=== PATIENT | female | born 1930 | race Caucasian/White ===

== ENCOUNTER 2018-05-03 03:52 | Inpatient (IN) ==
[2018-05-03] MEDS ORDERED: Ipratropium/Albuterol Neb 3 ML IH ONE (04:00)
[2018-05-03] MEDS ORDERED: methylPREDNISolone 125 MG/2 ML VIAL IVP ONE (04:00)
--- NOTE | 2018-05-03 04:03 | Emergency Department Note ---
Disposition Clinical Impression: Hypoxia Dyspnea Qualifiers: Dyspnea type: unspecified Qualified Code(s): R06.00 - Dyspnea, unspecified CHF (congestive heart failure) Qualifiers: Heart failure type: unspecified Heart failure chronicity: unspecified Qualified Code(s): I50.9 - Heart failure, unspecified Pneumonia Qualifiers: Pneumonia type: due to unspecified organism Laterality: right Lung location: middle lobe of lung Qualified Code(s): J18.1 - Lobar pneumonia, unspecified organism Disposition: Admitted As Inpatient Condition: Good Referrals: NONE,PCP [Primary Care Provider] - Forms: ED Satisfaction Letter General Adult HPI - General Chief complaint: ED Shortness of Breath/Dyspnea Stated complaint: sob Time Seen by Provider: 05/03/18 04:03 Source: patient Mode of arrival: ambulatory Limitations: no limitations Nursing Notes Reviewed: Yes Vital Signs Reviewed: Yes - History of Present Illness HPI Narrative: Patient with past history of previous coronary artery disease as well as CHF, thyroid disease, previous schwannoma presents emergency department for shortness of breath. Started yesterday. Patient has had productive brown sputum without fever. Denies chest pain. Denies fever. Has no prior lung pathology. She states that she did get diagnosed with lung cancer but looking through her records this was a schwannoma the did undergo treatment and has left her with left-sided arm weakness which she states has been chronic since her procedure. The patient was found at her home to be hypoxic at 80%. She states that she felt short of breath. She states that she is feeling better now. She was given breathing treatments by EMS. She was requiring 4 L to keep her pulse ox at 94%. In the emergency department she has got diffuse wheezing with rales at the bases. Patient is 84% on 4 L. The patient will receive further breathing treatments as well as steroids and BiPAP. Further workup to delineate pulmonary versus cardiac pathology she has been ordered. She did have what she thought was a viral syndrome earlier in the week where she was having a slight cough and runny nose myalgias and associated weakness. - Related Data Home Medications Medication Instructions Recorded Confirmed Lipitor 80 mg PO DAILY 10/03/16 09/22/17 Potassium 50 meq PO DAILY 10/03/16 03/31/18 Cranberry 650 mg PO DAILY 11/11/16 03/31/18 Daily Multivitamin Capsule 1 tab PO DAILY 11/11/16 03/31/18 Folic Acid 400 mcg PO DAILY 11/11/16 09/22/17 Brinzolamide/Brimonidine Tart 1 drop OP BID 11/29/16 03/31/18 [Simbrinza 1%-0.2% Eye Drops] Latanoprost [Xalatan] 1 drop OP HS 11/29/16 03/31/18 Aspirin [Adult Aspirin] 81 mg PO DAILY 03/31/18 03/31/18 Clopidogrel [Plavix] 75 mg PO DAILY 03/31/18 03/31/18 Furosemide [Lasix] 10 mg PO DAILY 03/31/18 03/31/18 Metoprolol Tartrate [Lopressor] 50 mg PO BID 03/31/18 03/31/18 Pregabalin [Lyrica] 75 mg PO TID 03/31/18 03/31/18 Sacubitril/Valsartan [Entresto 49 1 each PO BID 03/31/18 03/31/18 mg-51 mg Tablet] Allergies Allergy/AdvReac Type Severity Reaction Status Date / Time Estrogens Allergy Anaphylaxis Verified 05/12/17 13:28 levothyroxine sodium Allergy See Verified 03/31/18 15:41 [From Synthroid] Comments ramipril Allergy Anaphylaxis Verified 05/12/17 13:28 shellfish derived Allergy Vomiting Verified 03/31/18 15:39 Sulfa (Sulfonamide Allergy See Verified 03/31/18 15:41 Antibiotics) Comments Review of Systems: CONSTITUTIONAL: Weakness and fatigue without fevers or chills HEENT: Eyes: No visual changes. Ears, Nose, Throat: No hearing loss, difficulty talking or unable to swallow. SKIN: No rash or itching. CARDIOVASCULAR: No chest pain, chest pressure or chest discomfort. No palpitations or edema. RESPIRATORY: Shortness of breath cough and sputum production. GASTROINTESTINAL: No anorexia, nausea, vomiting or diarrhea. No abdominal pain or blood. GENITOURINARY: No burning on urination or hematuria. NEUROLOGICAL: No headache, dizziness, syncope, paralysis, ataxia, numbness or tingling in the extremities. No change in bowel or bladder control. MUSCULOSKELETAL: No muscle pain, back pain, joint pain or stiffness. Past Medical History - Past Medical History Medical history: Reports: arthritis, cardiomyopathy, CHF, coronary artery disease, glaucoma, hyperlipidemia, hypertension, myocardial infarction, thyroid disease, valvular heart disease - Social History Smoking Status: Never smoker Smokeless Tobacco Status: No Alcohol use: Reports: none Drug use: Reports: none Physical Exam General: Mild respiratory distress. Head: Normocephalic Atraumatic Eyes: PERRL, EOMI ENT: Airway patent, no stridor Neck: supple, no meningismus Chest: Lungs clear to auscultation bilateral Cardiac: Regular rate and rhythm, no murmurs, rubs or gallops Abdomen: soft, nontender, nondistended; no guarding, rebound, or tenderness to percussion Musculoskeletal: Calves symmetric, nontender, no palpable cord Skin: No rash, normal skin tone Neuro: Alert and Oriented to person, place, and time; No CN 2-12 symmetric and intact; left arm weaknesschronic, no other deficits. Course - Reevaluation(s) Reevaluation #1: Patient was given one nitroglycerin with blood pressure going to 123 systolic. Patient was placed on BiPAP and her oxygen is 98% on 50% FiO2. Patient does have an old EKG with her in her personal belongings. His from 2016. It shows similar pattern to today of mild elevations with left bundle branch block to the anterior leads as well as depressions throughout the lateral leads. No significant changes. The patient's chest x-ray shows concern first interstitial pulmonary edema versus multifocal infiltrates. The patient does have a significantly elevated BNP at 2000. No prior BNP for comparison. She has had productive sputum with what she describes as brown sputum. The patient does not have any significant pulmonary history she did get initial breathing treatments and steroids for was likely cardiac asthma. The patient's chest x-ray was visualized that she does have concern for a right middle lobe pneumonia as she has loss of the right heart border. Patient has been given a dose of ceftriaxone and azithromycin in the emergency department with blood cultures obtained. - Consultations Consultation #1: Discussed with hospitalist. Patient except for admission. Vital Signs Temperature 98.5 F 05/03/18 04:01 Pulse Rate 86 05/03/18 04:01 Respiratory Rate 24 05/03/18 04:01 Blood Pressure 172/84 05/03/18 04:01 O2 Sat by Pulse Oximetry 91 05/03/18 04:01 Temperature 98.5 F 05/03/18 04:01 Pulse Rate 86 05/03/18 04:01 Respiratory Rate 24 05/03/18 04:01 Blood Pressure 172/84 05/03/18 04:01 O2 Sat by Pulse Oximetry 88 05/03/18 04:05 Oxygen Delivery Oxygen Delivery Room Air,Oximizer Medical Decision Making - Medical Records Medical records reviewed: Yes I reviewed the patient's medical records. - Lab Data Lab results reviewed: Yes I reviewed the patient's lab results. Result diagrams: 05/03/18 04:09 05/03/18 04:09 Lab Results 05/03/18 05/03/18 05/03/18 Range/Units 04:09 04:09 04:09 WBC 8.6 (4.3-11.1) K/mcL RBC 4.85 (3.82-4.97) M/mcL Hgb 13.3 (11.5-15.4) g/dL Hct 42.3 (35.3-44.9) % MCV 87.2 (83.0-100.0) fL MCH 27.4 L (28.0-33.3) pg MCHC 31.4 L (31.6-35.5) g/dL RDW 14.2 (11.5-14.5) % Plt Count 227 (140-400) K/mcL MPV 10.9 (9.4-12.4) fL Immature Gran % 0.2 (0-4) % Seg Neutrophils % 60.9 % Lymphocytes % 25.4 % Monocytes % 7.2 % Eosinophils % 5.6 % Basophils % 0.7 % Neutrophils # 5.2 (1.6-8.9) K/mcL Lymphocytes # 2.2 (0.6-4.6) K/mcL Monocytes # 0.6 (0.0-1.3) K/mcL Eosinophils # 0.5 (0.0-0.6) K/mcL Basophils # 0.1 (0.0-0.2) K/mcL PT 11.0 (9.4-12.1) Seconds INR 1.0 Sodium 142 (136-145) mEq/L Potassium 3.1 L (3.5-5.1) mEq/L Chloride 106 (98-107) mEq/L Carbon Dioxide 24 (23-29) mEq/L BUN 16 (8-23) mg/dL Creatinine 0.69 (0.60-1.20) mg/dL Est GFR ( Amer) > 60 (> 60) Est GFR (Non-Af Amer) > 60 (> 60) BUN/Creatinine Ratio 23 (6-26) Glucose 195 H (70-105) mg/dL Calculated Osmolality 301 H (280-300) Lactic Acid (0.5-2.2) mmol/L Calcium 8.9 (8.6-10.3) mg/dL Troponin I 0.03 (< 0.04) ng/mL B-Natriuretic Peptide (Less than 100) pg/mL 05/03/18 05/03/18 Range/Units 04:09 04:09 WBC (4.3-11.1) K/mcL RBC (3.82-4.97) M/mcL Hgb (11.5-15.4) g/dL Hct (35.3-44.9) % MCV (83.0-100.0) fL MCH (28.0-33.3) pg MCHC (31.6-35.5) g/dL RDW (11.5-14.5) % Plt Count (140-400) K/mcL MPV (9.4-12.4) fL Immature Gran % (0-4) % Seg Neutrophils % % Lymphocytes % % Monocytes % % Eosinophils % % Basophils % % Neutrophils # (1.6-8.9) K/mcL Lymphocytes # (0.6-4.6) K/mcL Monocytes # (0.0-1.3) K/mcL Eosinophils # (0.0-0.6) K/mcL Basophils # (0.0-0.2) K/mcL PT (9.4-12.1) Seconds INR Sodium (136-145) mEq/L Potassium (3.5-5.1) mEq/L Chloride (98-107) mEq/L Carbon Dioxide (23-29) mEq/L BUN (8-23) mg/dL Creatinine (0.60-1.20) mg/dL Est GFR ( Amer) (> 60) Est GFR (Non-Af Amer) (> 60) BUN/Creatinine Ratio (6-26) Glucose (70-105) mg/dL Calculated Osmolality (280-300) Lactic Acid 2.6 H (0.5-2.2) mmol/L Calcium (8.6-10.3) mg/dL Troponin I (< 0.04) ng/mL B-Natriuretic Peptide 2498 H (Less than 100) pg/mL - Radiology Data Radiology results reviewed: Yes I reviewed the patient's radiology results. - EKG Data EKG #1 EKG attestation: Yes I reviewed and interpreted this EKG. EKG results narrative: EKG shows sinus rhythm with heart rate of 82. ND interval 188. QRS 156. QTC 524. Patient has sinus sinus was not rhythm with a wide QRS and elevations throughout the anterior leads with associated lateral lead T-wave depression. Patient is not having any active chest pain and there is no prior EKG for comparison.
[2018-05-03] MEDS ORDERED: Nitroglycerin 0.4 MG TAB.SUBL SL PRN (04:13)
[2018-05-03] MEDS ORDERED: Nitroglycerin 0.4 MG TAB.SUBL SL ONE (04:18)
[2018-05-03 04:31] LABS: Basophils # 0.1 K/mcL (0.0-0.2); Basophils % 0.7 %; Eosinophils # 0.5 K/mcL (0.0-0.6); Eosinophils % 5.6 %; Hematocrit 42.3 % (35.3-44.9); Hemoglobin 13.3 g/dL (11.5-15.4); Immature Granulocytes % 0.2 % (0-4); Lymphocytes # 2.2 K/mcL (0.6-4.6); Lymphocytes % 25.4 %; Mean Corpuscular HGB Conc 31.4 g/dL (31.6-35.5); Mean Corpuscular Hemoglobin 27.4 pg (28.0-33.3); Mean Corpuscular Volume 87.2 fL (83.0-100.0); Mean Platelet Volume 10.9 fL (9.4-12.4); Monocytes # 0.6 K/mcL (0.0-1.3); Monocytes % 7.2 %; Neutrophils # 5.2 K/mcL (1.6-8.9); Platelet Count 227 K/mcL (140-400); Red Blood Count 4.85 M/mcL (3.82-4.97); Red Cell Distribution Width 14.2 % (11.5-14.5); Segmented Neutrophils % 60.9 %
[2018-05-03 04:53] LABS: BUN/Creatinine Ratio 23 (6-26); Blood Urea Nitrogen 16 mg/dL (8-23); Calcium 8.9 mg/dL (8.6-10.3); Carbon Dioxide 24 mEq/L (23-29); Chloride 106 mEq/L (98-107); Glucose 195 mg/dL (70-105); Osmolality,Calculated 301 (280-300); Potassium 3.1 mEq/L (3.5-5.1); Sodium 142 mEq/L (136-145); eGFR For Non-African Americans > 60 (> 60)
[2018-05-03 04:54] LABS: Troponin I 0.03 ng/mL (< 0.04)
[2018-05-03] MEDS ORDERED: Furosemide 40 MG/4 ML VIAL IVP ONE (05:03)
[2018-05-03] MEDS ORDERED: cefTRIAXone 1,000 MG in Water for inj. (sterile) 20 ML 10 ML IVP STA (05:03)
[2018-05-03] MEDS ORDERED: Azithromycin 500 MG in D5% in Water 250 ML IVPB STA (05:03)
--- NOTE | 2018-05-03 09:47 | Internal Med History&Physical ---
Date of Encounter: 05/03/18 Time of Encounter: 09:47 Internal Medicine - H&P: HPI Chief complaint: SOB History of present illness: Ms. Fernandes is a 88 year old female Patient with coronary artery disease as well as CHF, thyroid disease, previous schwannoma presents emergency department for shortness of breath associated with productive cough. She denies chest pain. Denies fever. The patient was found at her home to be hypoxic at 80% and her She was requiring 4 L to keep her pulse ox at 94%. she was treated with breathing treatments as well as ECG revealed mild elevations with left bundle branch block to the anterior leads as well as depressions throughout the lateral unchanged form prior exam. chest x-ray shows concern first interstitial pulmonary edema versus multifocal infiltrates due to right middle lobe pneumonia. She was admitted for further evaluation. Past Med Surg Social Fam HX - Past Medical History Medical history: arthritis, cardiomyopathy, CHF, coronary artery disease, glaucoma, hyperlipidemia, hypertension, myocardial infarction, thyroid disease, valvular heart disease Additional medical history: lung cancer - Past Surgical History Surgical History: appendectomy, , hysterectomy - Social History Smoking Status: Never smoker Smokeless Tobacco Status: No Alcohol use: none Drug use: none - Family History Mother Living Status: Hx Family Cardiac Disorders: Yes Hx Family Respiratory Disorders: No Hx Family Cancer: Yes Hx Family GI Disorders: No Hx Family Endocrine Disorder: No Hx Family Neuromuscular Disorders: No Hx Family Neurologic Disorders: No Hx Family HEENT Disorders: No Hx Family Autoimmune Disorders: No Internal Medicine - H&P: Meds Potassium 80 meq PO DAILY 10/03/16 [History] Cranberry 650 mg PO DAILY 11/11/16 [History] Daily Multivitamin Capsule 1 tab PO DAILY 11/11/16 [History] Folic Acid 400 mcg PO DAILY 11/11/16 [History] RX: Brinzolamide/Brimonidine Tart [Simbrinza 1%-0.2% Eye Drops] 1 drop OP BID 11/29/16 [History] RX: Latanoprost [Xalatan] 1 drop BOTH EYES HS 11/29/16 [History] RX: Aspirin [Adult Aspirin] 81 mg PO DAILY 03/31/18 [History] RX: Clopidogrel [Plavix] 75 mg PO DAILY 03/31/18 [History] RX: Metoprolol Tartrate [Lopressor] 50 mg PO BID 03/31/18 [History] RX: Pregabalin [Lyrica] 75 mg PO TID 03/31/18 [History] RX: Atorvastatin [Lipitor] 80 mg PO HS 05/04/18 [History] RX: Sacubitril/Valsartan [Entresto 97 mg-103 mg Tablet] 1 each PO BID 05/04/18 [History] Apixaban [Eliquis] 2.5 mg PO BID #60 tablet 05/05/18 [Rx] RX: Atorvastatin [Lipitor] 80 mg PO HS 30 Days #30 tablet 05/06/18 [Rx] RX: Furosemide [Lasix] 40 mg PO DAILY 30 Days #30 tablet 05/06/18 [Rx] Allergy/AdvReac Type Severity Reaction Status Date / Time ramipril Allergy Unknown See Verified 05/04/18 13:06 Comments Sulfa (Sulfonamide Allergy Unknown See Verified 05/04/18 13:06 Antibiotics) Comments shellfish derived Allergy Vomiting Verified 03/31/18 15:39 Estrogens AdvReac Mild See Verified 05/04/18 13:06 Comments levothyroxine sodium AdvReac Unknown See Verified 05/04/18 13:06 [From Synthroid] Comments All Systems PM: A 10-system review of systems was performed and is negative for pertinent findings except as documented above in the HPI. - Constitutional Constitutional: no chills, no fever(s), no night sweats - Cardiovascular Cardiovascular ROS IM: dyspnea, no chest pain, no diaphoresis, no lightheadedness, no palpitations, no syncope - Respiratory Respiratory: cough, dyspnea, excessive phlegm production - Gastrointestinal Gastrointestinal: no abdominal pain, no diarrhea, no hematemesis, no hematochezia, no melena, no nausea, no vomiting - Neurological Neurological ROS: no confusion, no convulsions, no focal weakness, no numbness, no tingling, no tremor(s) - Constitutional Vitals: Temp Pulse Resp BP Pulse Ox 98.5 F 77 16 138/95 92 05/03/18 06:55 05/03/18 06:55 05/03/18 06:55 05/03/18 06:55 05/03/18 06:55 General appearance: Present: A&O X 3 Exam: Physical Exam General: Mild respiratory distress. Head: Normocephalic Atraumatic Eyes: PERRL, EOMI ENT: Airway patent, no stridor Neck: supple, no meningismus Chest: Lungs clear to auscultation bilateral Cardiac: Regular rate and rhythm, no murmurs, rubs or gallops Abdomen: soft, nontender, nondistended; no guarding, rebound, or tenderness to percussion Musculoskeletal: Calves symmetric, nontender, no palpable cord Skin: No rash, normal skin tone Neuro: Alert and Oriented to person, place, and time; No CN 2-12 symmetric and intact; left arm weaknesschronic, no other deficits. - Head Head exam: Present: atraumatic, normocephalic - Neck Neck exam general surgery: Present: supple, trachea midline. Absent: lymphadenopathy - Respiratory Respiratory exam: Present: CTAB. Absent: accessory muscle use, rales, rhonchi, wheezes - Cardiovascular Cardiovascular exam: Present: RRR, +S1, +S2. Absent: diastolic murmur, gallop, rubs, systolic murmur - GI/Abdominal GI/Abdominal exam: Present: normal bowel sounds, soft, no peritoneal signs. Absent: distended, tenderness - Extremities Exam Extremities exam: Present: warm, radial pulses palpable and symmetrical. Absent: calf tenderness, cyanotic, pedal edema Internal Med - H&P Results - Labs CBC & Chem 7: 05/06/18 10:14 05/07/18 09:05 Labs: Short CBC 05/03/18 Range/Units 04:09 WBC 8.6 (4.3-11.1) K/mcL Hgb 13.3 (11.5-15.4) g/dL Hct 42.3 (35.3-44.9) % Plt Count 227 (140-400) K/mcL Neutrophils # 5.2 (1.6-8.9) K/mcL BMP 05/03/18 04:09 Sodium 142 Potassium 3.1 L Chloride 106 Carbon Dioxide 24 BUN 16 Creatinine 0.69 Glucose 195 H Calcium 8.9 Cardiac Enzymes 05/03/18 Range/Units 04:09 Troponin I 0.03 (< 0.04) ng/mL - Impressions ITS Impressions Chest X-Ray 05/03/18 04:00 IMPRESSION: Moderate interstitial opacities throughout both lungs may represent atypical pneumonia or moderate interstitial pulmonary edema. D/ / Hipolito Gallo MD / Hipolito Gallo MD Interpreting Provider: Hipolito Gallo MD - Assessment and plan (1) Shortness of breath Status: Acute Assessment and plan: - SOB due to DD Pneumonia Vs CHF vs COPD exacerbation - Blood Cx - Antibiotics - CBCD, CMP in AM - Continue home dose of lasix. - Tylenol 650 mg PO q 4-6 hr PRN pain or fever - Heparin 5000 U SQ BID (2) Pneumonia Status: Acute Assessment and plan: As above Qualifiers: Pneumonia type: due to unspecified organism Laterality: right Lung location: middle lobe of lung Qualified Code(s): J18.1 - Lobar pneumonia, unspecified organism (3) Hypertension Status: Chronic Assessment and plan: Lopressor Qualifiers: Hypertension type: essential hypertension Qualified Code(s): I10 - Essential (primary) hypertension (4) Schwannoma Status: Chronic Assessment and plan: Stable (5) History of radiation therapy Status: Chronic Assessment and plan: Due to lung CA (6) Hyperlipidemia Status: Acute Assessment and plan: We will continue home statin and obtain fasting lipid profile in a.m. Qualifiers: Qualified Code(s): E78.5 - Hyperlipidemia, unspecified (7) Chronic hypokalemia Status: Acute Assessment and plan: We will continue home potassium supplementation and continue to monitor potassium level - Time Spent With Patient Total time spent is greater than 50% in coordination of care (as documented) at patient's floor/unit and/or counseling patient:
[2018-05-03] MEDS ORDERED: Naloxone 0.4 MG/ML INJ IVP PRN (10:40)
[2018-05-03] MEDS ORDERED: SACUBITRIL/VALSARTAN 49/51 MG TABLET PO SCH (10:45)
[2018-05-03] MEDS ORDERED: Folic Acid 1 MG TABLET PO SCH (10:45)
[2018-05-03] MEDS ORDERED: Multivit/Ca/Min/Fe/FA 1 TAB TABLET PO SCH (10:45)
[2018-05-03] MEDS ORDERED: CRANBERRY 650 MG PO SCH (10:45)
[2018-05-03] MEDS ORDERED: Aspirin Enteric Coated 81 MG Tablet PO SCH (10:45)
[2018-05-03] MEDS: Pregabalin 75 MG CAPSULE PO SCH ×3 (15:24→22:07)
[2018-05-03] MEDS: Folic Acid 1 MG TABLET PO SCH (15:27)
[2018-05-03] MEDS: SACUBITRIL/VALSARTAN 49/51 MG TABLET PO SCH ×2 (15:28→22:07)
[2018-05-03] MEDS: Aspirin Enteric Coated 81 MG Tablet PO SCH (15:30)
[2018-05-03] MEDS: Multivit/Ca/Min/Fe/FA 1 TAB TABLET PO SCH (15:31)
[2018-05-03] MEDS: Brinzolamide/Brimonidine Tart [Simbrinza 1%-0.2% Eye OP SCH ×2 (15:35→22:08)
[2018-05-03] MEDS: Latanoprost 2.5 ML BOTTLE BOTH EYES SCH (22:08)
[2018-05-03] MEDS: Ipratropium/Albuterol Neb 3 ML IH SCH (23:59)
[2018-05-04] MEDS: MethylPREDNISolone 40 MG/ML VIAL IVP SCH ×2 (00:20→06:16)
[2018-05-04] MEDS: Ipratropium/Albuterol Neb 3 ML IH SCH ×4 (03:36→23:36)
[2018-05-04 05:40] LABS: Basophils % 0.1 %; Immature Granulocytes % 1.3 % (0-4); Lymphocytes # 0.7 K/mcL (0.6-4.6); Lymphocytes % 7.8 %; Mean Corpuscular HGB Conc 32.4 g/dL (31.6-35.5); Mean Corpuscular Hemoglobin 27.7 pg (28.0-33.3); Mean Corpuscular Volume 85.6 fL (83.0-100.0); Monocytes # 0.2 K/mcL (0.0-1.3); Monocytes % 1.9 %; Neutrophils # 8.2 K/mcL (1.6-8.9); Platelet Count 198 K/mcL (140-400); Red Blood Count 3.97 M/mcL (3.82-4.97); Red Cell Distribution Width 14.5 % (11.5-14.5); Segmented Neutrophils % 88.9 %
[2018-05-04 05:59] LABS: Alanine Aminotransferase 10 Units/L (7-52); Albumin 3.7 g/dL (3.5-5.7); Albumin/Globulin Ratio 1.5 (1.1-2.2); Alkaline Phosphatase 99 Units/L (34-104); Aspartate Amino Transferase 15 Units/L (13-39); BUN/Creatinine Ratio 32 (6-26); Bilirubin,Total 0.6 mg/dL (0.3-1.0); Blood Urea Nitrogen 22 mg/dL (8-23); Calcium 8.8 mg/dL (8.6-10.3); Carbon Dioxide 28 mEq/L (23-29); Chloride 106 mEq/L (98-107); Chol/HDL Ratio 2.6 (0-4.9); Cholesterol 140 mg/dL (< 200); Globulin 2.5 g/dL (2.4-3.5); Glucose 155 mg/dL (70-105); HDL Cholesterol 53 mg/dL (40-59); LDL Cholesterol,Calculated 77 mg/dL (0-99); Magnesium 1.9 mg/dL (1.6-2.6); Osmolality,Calculated 304 (280-300); Phosphorous 3.5 mg/dL (2.7-4.5); Potassium 3.5 mEq/L (3.5-5.1); Sodium 144 mEq/L (136-145); Total Protein 6.2 g/dL (6.4-8.9); Triglycerides 50 mg/dL (< 150); eGFR For Non-African Americans > 60 (> 60)
[2018-05-04] MEDS ORDERED: Azithromycin 500 MG in D5% in Water 250 ML IVPB SCH (06:00)
[2018-05-04] MEDS ORDERED: cefTRIAXone 1,000 MG in Water for inj. (sterile) 20 ML 10 ML IVP SCH (09:00)
[2018-05-04] MEDS: Aspirin Enteric Coated 81 MG Tablet PO SCH (09:01)
[2018-05-04] MEDS: Pregabalin 75 MG CAPSULE PO SCH ×4 (09:01→21:33)
[2018-05-04] MEDS: Folic Acid 1 MG TABLET PO SCH (09:01)
[2018-05-04] MEDS: SACUBITRIL/VALSARTAN 49/51 MG TABLET PO SCH (09:01)
[2018-05-04] MEDS: Multivit/Ca/Min/Fe/FA 1 TAB TABLET PO SCH (09:01)
[2018-05-04] MEDS: Brinzolamide/Brimonidine Tart [Simbrinza 1%-0.2% Eye OP SCH ×2 (09:02→21:34)
--- NOTE | 2018-05-04 13:56 | Internal Med Progress Note ---
Hospitalist Progress Note - Encounter Date of Encounter: 05/04/18 Time of Encounter: 13:56 - Subjective Interval History: Pt states she is feeling better. Decreased cough and rare sputum. She denies CP and SOB improved. She denies being on home oxygen but does use inhalers. She is also not on BiPAP or CPAP at home. cousin at bedside states she is s/p PCI with stents in October and shortly after she developed CHF and was treated for it. She is on home Lasix. - Exam Vitals: Temp Pulse Resp BP Pulse Ox 97.6 F 72 16 131/89 97 05/04/18 12:17 05/04/18 12:17 05/04/18 12:17 05/04/18 12:17 05/04/18 12:17 Exam: Physical Exam General: Mild respiratory distress. Head: Normocephalic Atraumatic Eyes: PERRL, EOMI ENT: Airway patent, no stridor Neck: supple, no meningismus Chest: Lungs clear to auscultation bilateral Cardiac: Regular rate and rhythm, no murmurs, rubs or gallops Abdomen: soft, nontender, nondistended; no guarding, rebound, or tenderness to percussion Musculoskeletal: Calves symmetric, nontender, no palpable cord Skin: No rash, normal skin tone Neuro: Alert and Oriented to person, place, and time; No CN 2-12 symmetric and intact; left arm weaknesschronic, no other deficits. - Assessment and Plan (1) Shortness of breath Current Visit: Yes Status: Acute Assessment and Plan: - SOB due to interstitial pulmonary edema. Doubt PNA. Pt is afebrile and WBC 9.3 and WNL. Oxygen sat on admission 80% on room air. Not on home oxygen. Will check ambulatory pulse ox. - Blood Cx NGTD - Zithromax and Rocpehin but will DC as there is no evidence of PNA at this time. - Will check respiratory panel. Will check Echo as well. - CBC and CMP reviewed - Continue home dose of Lasix. - Tylenol 650 mg PO q 4-6 hr PRN pain or fever - Heparin 5000 U SQ BID (2) Hypertension Current Visit: No Status: Chronic Assessment and Plan: Lopressor (3) Schwannoma Current Visit: No Status: Chronic Assessment and Plan: Pt has lung CA schwannoma. (4) History of radiation therapy Current Visit: No Status: Chronic Assessment and Plan: Due to lung CA (5) Pneumonia Current Visit: Yes Status: Acute Assessment and Plan: Possible PNA but doubt. More likely pulmonary edema. Will check resp panel and sputum culture. (6) Coronary artery disease Current Visit: Yes Status: Acute Assessment and Plan: On ASA and Atorvastatin (7) Hyperlipidemia Current Visit: Yes Status: Acute Assessment and Plan: Atorvastatin (8) Chronic hypokalemia Current Visit: Yes Status: Acute Assessment and Plan: K corrected. K 3.5 DVT Prophylaxis: Heparin - Summary of Assessment and Plan Summary of Assessment and Plan: Ms. Fernandes is a 88 year old female Patient with coronary artery disease as well as CHF, thyroid disease, previous schwannoma presents emergency department for shortness of breath associated with productive cough. She denies chest pain. Denies fever. The patient was found at her home to be hypoxic at 80% and her She was requiring 4 L to keep her pulse ox at 94%. she was treated with breathing treatments as well as ECG revealed mild elevations with left bundle branch block to the anterior leads as well as depressions throughout the lateral unchanged form prior exam. chest x-ray shows concern first interstitial pulmonary edema versus multifocal infiltrates due to right middle lobe pneumonia. She was admitted for further evaluation. - Time Spent with Patient Total time spent is greater than 50% in coordination of care (as documented) at patient's floor/unit and/or counseling patient: Plan of Care Discussed with: patient Internal Medicine: Result - Labs CBC & Chem 7: 05/04/18 05:03 05/04/18 05:03 Labs: Short CBC 05/04/18 Range/Units 05:03 WBC 9.3 (4.3-11.1) K/mcL Hgb 11.0 L D (11.5-15.4) g/dL Hct 34.0 L (35.3-44.9) % Plt Count 198 (140-400) K/mcL Neutrophils # 8.2 (1.6-8.9) K/mcL BMP 05/04/18 05:03 Sodium 144 Potassium 3.5 Chloride 106 Carbon Dioxide 28 BUN 22 Creatinine 0.68 Glucose 155 H Calcium 8.8 Cardiac Enzymes 05/03/18 05/03/18 Range/Units 16:46 23:15 Troponin I 0.03 0.04 H* (< 0.04) ng/mL Liver Function 05/04/18 Range/Units 05:03 Total Bilirubin 0.6 (0.3-1.0) mg/dL AST 15 (13-39) Units/L ALT 10 (7-52) Units/L Alkaline Phosphatase 99 (34-104) Units/L Albumin 3.7 (3.5-5.7) g/dL - ABG Interpretation ABG results: PT/INR, D-dimer PT 11.0 Seconds (9.4-12.1) 05/03/18 04:09 - Impressions Impressions Chest X-Ray 05/03/18 04:00 IMPRESSION: Moderate interstitial opacities throughout both lungs may represent atypical pneumonia or moderate interstitial pulmonary edema. D/ / 05/03/2018 11:29:42 Hipolito Gallo MD / shawanda Interpreting Provider: Hipolito Gallo MD Consult Discharge Plan - Plan Referrals: NONE,PCP [Primary Care Provider] - (2) Hypertension Qualifiers: Hypertension type: essential hypertension Qualified Code(s): I10 - Essential (primary) hypertension (5) Pneumonia Qualifiers: Pneumonia type: due to unspecified organism Laterality: right Lung location: middle lobe of lung Qualified Code(s): J18.1 - Lobar pneumonia, unspecified organism
[2018-05-04] MEDS: *HR* Heparin 5,000 UNIT/ML VIAL SQ SCH (17:35)
[2018-05-04] MEDS ORDERED: SACUBITRIL/VALSARTAN 97/103 MG TABLET PO SCH (21:00)
[2018-05-04] MEDS: Latanoprost 2.5 ML BOTTLE BOTH EYES SCH (21:34)
[2018-05-05 01:57] LABS: Adenovirus Not Detected (Not Detect); Bordetella Pertussis Not Detected (Not Detect); Chlamydophila pneumoniae Not Detected (Not Detect); Coronavirus 229E Not Detected (Not Detect); Coronavirus HKU1 Not Detected (Not Detect); Coronavirus NL63 Not Detected (Not Detect); Coronavirus OC43 Not Detected (Not Detect); Human Metapneumovirus Not Detected (Not Detect); Human Rhinovirus/Enterovirus DETECTED (Not Detect); Influenza A Subtype 2009 H1 Not Detected (Not Detect); Influenza A Untypeable Not Detected (Not Detect); Influenza B Not Detected (Not Detect); Mycoplasma pneumoniae Not Detected (Not Detect); Parainfluenza Virus 1 Not Detected (Not Detect); Parainfluenza Virus 2 Not Detected (Not Detect); Parainfluenza Virus 3 Not Detected (Not Detect); Parainfluenza Virus 4 Not Detected (Not Detect); Respiratory Syncytial Virus Not Detected (Not Detect)
[2018-05-05] MEDS: Ipratropium/Albuterol Neb 3 ML IH SCH ×3 (04:07→16:26)
[2018-05-05] MEDS ORDERED: *HR* Metoprolol 5 MG/5 ML VIAL IVP ONE ×3 (05:13→05:38)
[2018-05-05] MEDS: *HR* Heparin 5,000 UNIT/ML VIAL SQ SCH (05:55)
[2018-05-05] MEDS ORDERED: *HR* Heparin 5,000 UNIT/ML VIAL IVP ONE (06:53)
[2018-05-05] MEDS ORDERED: *HR* Heparin 5,000 UNIT/ML VIAL IVP PRN ×2 (06:53)
[2018-05-05] MEDS ORDERED: Heparin 25,000 UNIT/500 ML D5W 25,000 UNIT/500 ML BAG IVC SCH (07:00)
--- NOTE | 2018-05-05 07:01 | Event Note ---
Date of Encounter: 05/05/18 Time of Encounter: 05:00 Called to patient's room for atrial fibrillation with rate of 140s to 160s. EKG performed confirmed atrial fibrillation with left fundal branch block, which patient has had on her previous EKG. Patient denies chest pain. Patient's blood pressure 140s over 90s initially. We established IV access, and gave patient 5 mg of Lopressor. Patient's rate initially dropped to 130s to 140s, repeat blood pressure check showed adequate blood pressure. Another dose of 5 mg Lopressor was given, and patient's heart rate went to 110s to 120s. Repeat blood pressure was about 120/80. After around 15 minutes, a third dose of Lopressor was given, and patient's rate went to the 90s to 120s. We continue to monitor patient's blood pressure, which did drop to 90s over 60s, and we will continue to monitor every 15 minutes. Patient has remained asymptomatic as far as chest pain, however she does state that even with her last heart attack she did not feel chest pain. Stat troponin was ordered, and was elevated to 0.06 from previous 0.04 two days ago. We will continue to monitor, and start heparin drip both for A. fib as well as elevating troponin. Will also order cardiology consult.
[2018-05-05 07:47] LABS: Hematocrit 33.6 % (35.3-44.9); Hemoglobin 10.7 g/dL (11.5-15.4); Mean Corpuscular HGB Conc 31.8 g/dL (31.6-35.5); Mean Corpuscular Hemoglobin 27.9 pg (28.0-33.3); Mean Corpuscular Volume 87.7 fL (83.0-100.0); Mean Platelet Volume 10.8 fL (9.4-12.4); Platelet Count 191 K/mcL (140-400); Red Blood Count 3.83 M/mcL (3.82-4.97); Red Cell Distribution Width 14.8 % (11.5-14.5)
[2018-05-05] MEDS: Pregabalin 75 MG CAPSULE PO SCH ×3 (07:51→21:16)
[2018-05-05] MEDS: Aspirin Enteric Coated 81 MG Tablet PO SCH (07:51)
[2018-05-05] MEDS: Folic Acid 1 MG TABLET PO SCH (07:51)
[2018-05-05] MEDS: Multivit/Ca/Min/Fe/FA 1 TAB TABLET PO SCH (07:52)
[2018-05-05] MEDS: Brinzolamide/Brimonidine Tart [Simbrinza 1%-0.2% Eye OP SCH (07:53)
[2018-05-05 07:55] LABS: Heparin anti-factor XA UFH 0.09 IU/mL (0.30-0.70)
[2018-05-05 07:56] LABS: INR 0.9; Prothrombin Time 10.6 Seconds (9.4-12.1)
--- NOTE | 2018-05-05 09:56 | Cardiology Consult Note ---
<Jm Mcgrath R - Last Filed: 05/05/18 09:52> Date of Encounter: 05/05/18 Time of Encounter: 09:52 Assessment and Plan (1) Atrial fibrillation with RVR Current Visit: Yes Status: Acute PAF, pt went into A-Fib RVR overnight. Currently SR. Pt unsure if she has hx of A-Fib. Continue BB. Check K and TSH. Mag WNL. [id number] (Age, HTN, CAD, CHF, Female). Currently on heparin gtt. Recommend AC. Will hudson check NOAC. Of note, HGB was 13.3 on admission, 10.7 today. Monitor closely. Denies active bleeding. TTE pending. Anticipate reduced EF given she is on Entresto. (2) Acute exacerbation of CHF (congestive heart failure) Current Visit: Yes Status: Acute Presumed acute on chronic systolic CHF given pt is on Entresto. No cardiac testing ar [facility]. Pt follows with Dr. Basilio. Will request records. Presented with cough and dyspnea, hypoxic. Respiratory panel is positive for entero/rhino virus as well. BNP 2897. CXR Moderate interstitial opacities throughout both lungs may represent atypical pneumonia or moderate interstitial pulmonary edema. Start IV Lasix 40mg BID for diuresis. Recommend Strict I/Os, Na and fluid restriction, daily weights. Qualifiers: Heart failure type: systolic Qualified Code(s): I50.23 - Acute on chronic systolic (congestive) heart failure (3) Elevated troponin Current Visit: Yes Status: Acute Troponins 0.03, 0.04, 0.03, 0.04, 0.06 in setting of acute on chronic CHF, entero/rhino virus and PAF. Suspect demand ischemia, nondiagnostic for ACS. TTE to evaluate structure and function. (4) Coronary artery disease Current Visit: Yes Status: Acute Per pt, DC with PCI x 2 10/2017 in [place], [place]. Denies CP. LBBB on ECG, not new. Continue ASA, Plavix, Statin, BB. Qualifiers: Coronary Disease-Associated Artery/Lesion type: [place] artery [place] vs. transplanted heart: [place] heart Associated angina: without angina Qualified Code(s): I25.10 - Atherosclerotic heart disease of [place] coronary artery without angina pectoris Discussion w patient/family: The assessment and plan as outlined above was discussed with the patient and/or family members who expressed understanding and agreement. All questions were answered. Thank you for involving us in the care of your patient. Please call with any questions. I will discuss all the above with Dr. Bhagat and make changes as necessary. History of Present Illness Consult date: 05/05/18 Consult reason: A-Fib RVR, elevated troponin, CHF Chief complaint: dyspnea, cough History of present illness: Ms. Fernandes is a 88 year old female with PMH of DC and CAD s/p PCI 10/2017 in [place] as well as CHF--presumed systolic given she is on Entresto, thyroid disease, previous schwannoma lung ca s/p radiation therapy that presents to ED for shortness of breath associated with productive cough. She denies chest pain. Pt is a poor historian. Most information obtained from H&P. The patient was reportedly found at her home to be hypoxic at 80%. BNP 2897. Troponins 0.03, 0.04, 0.03, 0.04, 0.06. Respiratory panel positive for entero/rhino virus. Overnight pt went into A-Fib RVR, PAF. Currently SR. Pt unsure if she has hx of A-Fib. She currently reports dyspnea and cough have improved. She denies chest pain. 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 Past Med Surg Social Fam HX - Past Medical History Medical history: arthritis, cardiomyopathy, CHF, coronary artery disease, glaucoma, hyperlipidemia, hypertension, myocardial infarction, thyroid disease, valvular heart disease Additional medical history: lung cancer - Past Surgical History Surgical History: appendectomy, , hysterectomy - Social History Smoking Status: Never smoker Smokeless Tobacco Status: No Alcohol use: none Drug use: none - Family History Mother Living Status: Hx Family Cardiac Disorders: Yes Hx Family Respiratory Disorders: No Hx Family Cancer: Yes Hx Family GI Disorders: No Hx Family Endocrine Disorder: No Hx Family Neuromuscular Disorders: No Hx Family Neurologic Disorders: No Hx Family HEENT Disorders: No Hx Family Autoimmune Disorders: No Medications and Allergies Potassium 80 meq PO DAILY 10/03/16 [History] Cranberry 650 mg PO DAILY 11/11/16 [History] Daily Multivitamin Capsule 1 tab PO DAILY 11/11/16 [History] Folic Acid 400 mcg PO DAILY 11/11/16 [History] Brinzolamide/Brimonidine Tart [Simbrinza 1%-0.2% Eye Drops] 1 drop OP BID 11/29/16 [History] Latanoprost [Xalatan] 1 drop BOTH EYES HS 11/29/16 [History] Aspirin [Adult Aspirin] 81 mg PO DAILY 03/31/18 [History] Clopidogrel [Plavix] 75 mg PO DAILY 03/31/18 [History] Furosemide [Lasix] 20 mg PO DAILY 03/31/18 [History] Metoprolol Tartrate [Lopressor] 50 mg PO BID 03/31/18 [History] Pregabalin [Lyrica] 75 mg PO TID 03/31/18 [History] Atorvastatin [Lipitor] 80 mg PO HS 05/04/18 [History] Sacubitril/Valsartan [Entresto 97 mg-103 mg Tablet] 1 each PO BID 05/04/18 [History] Apixaban [Eliquis] 2.5 mg PO BID #60 tablet 05/05/18 [Rx] Allergy/AdvReac Type Severity Reaction Status Date / Time ramipril Allergy Unknown See Verified 05/04/18 13:06 Comments Sulfa (Sulfonamide Allergy Unknown See Verified 05/04/18 13:06 Antibiotics) Comments shellfish derived Allergy Vomiting Verified 03/31/18 15:39 Estrogens AdvReac Mild See Verified 05/04/18 13:06 Comments levothyroxine sodium AdvReac Unknown See Verified 05/04/18 13:06 [From Synthroid] Comments All Systems Review: The remainder of the systems were reviewed and are negative - Cardiovascular Cardiovascular: as per HPI, dyspnea at rest, dyspnea on exertion - Respiratory Respiratory: cough, dyspnea Physical Examination Vital Signs, Last 4 Hours Temp Pulse Resp BP Pulse Ox 05/05/18 07:27 97.5 F L 115 17 118/66 95 05/05/18 06:22 112 115/65 Vital Signs Temp Pulse Resp BP Pulse Ox 05/05/18 07:27 97.5 F L 115 17 118/66 95 05/05/18 06:22 112 115/65 05/05/18 05:50 116/75 05/05/18 05:35 118/80 05/05/18 04:42 97.9 F 144 18 132/99 94 05/05/18 04:08 16 94 05/04/18 23:37 97.8 F 72 16 144/76 94 05/04/18 20:11 98.0 F 86 18 115/54 98 05/04/18 15:49 16 95 05/04/18 15:18 97.6 F 81 15 123/62 96 05/04/18 12:17 97.6 F 72 16 131/89 97 05/04/18 11:02 16 98 Intake and Output 05/04/18 05/05/18 05/05/18 23:59 07:59 15:59 Intake Total 120 / 120 0 / 0 240 / 240 Output Total 200 / 200 Balance 120 / 120 -200 / -200 240 / 240 Intake: Oral 120 / 120 0 / 0 240 / 240 Output: Urine 200 / 200 Other: Meal Dinner Breakfast Percent of Meal Consumed 80% 90% # Voids 0 0 Weight 53.03 kg Patient Weight 05/05/18 23:59 Weight 53.03 kg General: Conversant, No Apparent Distress HEENT: Atraumatic, Normocephaly, Mucus Membranes Moist Neck: No JVD, Normal carotid pulses Cardiac: Reg Rate and Rhythm, Normal S1 and S2, No Murmur Lungs: Normal Breath Sounds, No Wheeze, Rales, Rhonchi Neuro: Alert and responsive, No focal deficits noted Abdomen: Soft, Non-Tender Skin: No rashes noted on visualized skin Musculoskeletal: No Chest Wall Tenderness Extremities: No Clubbing, No Cyanosis, No Edema, Normal Pulses Results 05/05/18 07:36 05/04/18 05:03 Lab Results 05/05/18 05/05/18 05/05/18 06:05 07:36 07:36 WBC 11.1 Hgb 10.7 L Hct 33.6 L Plt Count 191 INR 0.9 Troponin I 0.06 H* Short CBC 05/05/18 Range/Units 07:36 WBC 11.1 (4.3-11.1) K/mcL Hgb 10.7 L (11.5-15.4) g/dL Hct 33.6 L (35.3-44.9) % Plt Count 191 (140-400) K/mcL Cardiac Enzymes 05/05/18 Range/Units 06:05 Troponin I 0.06 H* (< 0.04) ng/mL Active Medications Albuterol/Ipratropium (Duoneb) 3 ml IH QIDR [facility] Stop: 11/02/18 23:01 Last Admin: 05/05/18 04:07 Dose: 3 ml Aspirin (Aspirin Ec) 81 mg PO DAILY [facility] Stop: 11/02/18 15:31 Last Admin: 05/05/18 07:51 Dose: 81 mg Atorvastatin Calcium (Lipitor) 80 mg PO HS [facility] Stop: 11/02/18 21:01 Last Admin: 05/04/18 21:33 Dose: 80 mg Clopidogrel Bisulfate (Plavix) 75 mg PO DAILY [facility] Stop: 11/02/18 15:31 Last Admin: 05/05/18 07:51 Dose: 75 mg Folic Acid (Folic Acid) 1 mg PO DAILY [facility] Stop: 11/02/18 15:31 Last Admin: 05/05/18 07:51 Dose: 1 mg Heparin Sodium (Porcine) (Heparin) 3,200 unit 60 unit/kg (3200 unit) IVP Q6HR PRN PRN Reason: SEE COMMENTS Stop: 11/04/18 06:54 Heparin Sodium (Porcine) (Heparin) 1,600 unit 30 unit/kg (1600 unit) IVP Q6H PRN PRN Reason: SEE COMMENTS Stop: 11/04/18 06:54 Heparin Sodium/Dextrose (Heparin 25,000 Unit/500 Ml D5w) 25,000 unit in 500 mls @ 12.727 mls/hr IVC .Q24H [facility]; Protocol Stop: 11/04/18 07:01 Last Admin: 05/05/18 08:15 Dose: 12 unit/kg/hr, 12.727 mls/hr Latanoprost (Xalatan) 1 drop BOTH EYES HS [facility]; Protocol Stop: 11/02/18 21:01 Last Admin: 05/04/18 21:34 Dose: 1 drop Metoprolol Tartrate (Lopressor) 50 mg PO BID [facility] Stop: 11/02/18 15:31 Last Admin: 05/05/18 07:51 Dose: 50 mg Multivitamins/Calcium (Thera M Plus) 1 tab PO DAILY [facility] Stop: 11/02/18 15:31 Last Admin: 05/05/18 07:52 Dose: 1 tab Naloxone HCl (Narcan) 0.4 mg IVP Q2MIN PRN PRN Reason: SEE COMMENTS Stop: 11/02/18 10:41 Nitroglycerin (Nitroglycerin) 0.4 mg SL Q5MIN PRN PRN Reason: Chest Pain Stop: 11/02/18 04:14 Last Admin: 05/03/18 04:22 Dose: 0.4 mg Pharmacy Profile Note (Patient Taking Own Medication) 1 each OP BID [facility] Stop: 11/02/18 10:46 Last Admin: 05/05/18 07:53 Dose: Not Given Pregabalin (Lyrica) 75 mg PO TID [facility] Stop: 11/02/18 15:31 Last Admin: 05/05/18 07:51 Dose: 75 mg Sacubitril/Valsartan (Entresto 97 Mg-103 Mg Tablet) 1 tab PO BID [facility] Stop: 11/03/18 21:01 Last Admin: 05/04/18 23:30 Dose: 1 tab - Imaging and Cardiology Echo: pending - EKG Interpretation EKG results cardiology: personally reviewed (A-Fib RVR, LBBB), other (12 hr tele AVG HR 91, PAF) Consult Discharge Plan - Plan Referrals: NONE,PCP [Primary Care Provider] - Prescriptions: Apixaban [Eliquis] 2.5 mg PO BID #60 tablet <Brittaney Bhagat - Last Filed: 05/05/18 15:34> - Attending Attestation I have personally performed a face to face evaluation on this patient. I have reviewed and agree with the care plan. History and Exam by me shows: 88-year-old female with history of multiple comorbidities, hard of hearing and a poor historian presents due to increasing shortness of breath, and orthopnea. Patient had recent PCI at an outside hospital follows with Dr. Basilio through [facility]. is not available for review however patient on pr esentation has mild to moderate hypervolemia a significant elevation in her BNP likely systolic CHF. Gentle diuresis and obtain records for review. Troponins are adynamic likely nonischemic. Assessment and Plan Discussion w patient/family: The assessment and plan as outlined above was discussed with the patient and/or family members who expressed understanding and agreement. All questions were answered. Thank you for involving us in the care of your patient. Please call with any questions. History of Present Illness History of present illness: Ms. Fernandes is a 88 year old female All Systems Review: The remainder of the systems were reviewed and are negative Results 05/05/18 07:36 05/05/18 11:29 Lab Results 05/05/18 05/05/18 05/05/18 06:05 07:36 07:36 WBC 11.1 Hgb 10.7 L Hct 33.6 L Plt Count 191 INR 0.9 Sodium Potassium Chloride Carbon Dioxide BUN Creatinine Glucose Calcium Troponin I 0.06 H* 05/05/18 11:29 WBC Hgb Hct Plt Count INR Sodium 145 Potassium 3.1 L Chloride 107 Carbon Dioxide 30 H BUN 22 Creatinine 0.76 Glucose 114 H Calcium 8.5 L Troponin I
--- NOTE | 2018-05-05 11:25 | Internal Med Progress Note ---
Hospitalist Progress Note - Encounter Date of Encounter: 05/05/18 Time of Encounter: 10:45 - Exam Vitals: Temp Pulse Resp BP Pulse Ox 97.5 F L 115 17 118/66 95 05/05/18 07:27 05/05/18 07:27 05/05/18 07:27 05/05/18 07:27 05/05/18 07:27 Exam: Physical Exam General: Mild respiratory distress. Head: Normocephalic Atraumatic Eyes: PERRL, EOMI ENT: Airway patent, no stridor Neck: supple, no meningismus Chest: Lungs clear to auscultation bilateral Cardiac: Regular rate and rhythm, no murmurs, rubs or gallops Abdomen: soft, nontender, nondistended; no guarding, rebound, or tenderness to percussion Musculoskeletal: Calves symmetric, nontender, no palpable cord Skin: No rash, normal skin tone Neuro: Alert and Oriented to person, place, and time; No CN 2-12 symmetric and intact; left arm weaknesschronic, no other deficits. - Assessment and Plan (1) Acute systolic (congestive) heart failure Current Visit: Yes Status: Acute Assessment and Plan: Acute worsening of chronic systolic CHF. Continue lasix. Echo showed EF of 30- 35% Monitor ins and outs (2) Atrial fibrillation with RVR Current Visit: Yes Status: Acute Assessment and Plan: Started on heparin drip overnight. Now rate controlled with metoprolol. Transitioned to apixaban for anticoagulation Cardiology following (3) Pneumonia Current Visit: Yes Status: Acute Assessment and Plan: Viral pneumonia with enterovirus PCR positive. Supportive care. Improved (4) Hypertension Current Visit: No Status: Chronic Assessment and Plan: Lopressor (5) Schwannoma Current Visit: No Status: Chronic Assessment and Plan: Stable (6) History of radiation therapy Current Visit: No Status: Chronic Assessment and Plan: Due to lung CA (7) Shortness of breath Current Visit: Yes Status: Acute Assessment and Plan: - SOB due to interstitial pulmonary edema. Doubt PNA. Pt is afebrile and WBC 9.3 and WNL. Oxygen sat on admission 80% on room air. Not on home oxygen. Will check ambulatory pulse ox. - Blood Cx NGTD - Zithromax and Rocpehin but will DC as there is no evidence of PNA at this time. - Will check respiratory panel. Will check Echo as well. - CBC and CMP reviewed - Continue home dose of Lasix. - Tylenol 650 mg PO q 4-6 hr PRN pain or fever - Heparin 5000 U SQ BID (8) Coronary artery disease Current Visit: Yes Status: Acute Assessment and Plan: On ASA and Atorvastatin (9) Hyperlipidemia Current Visit: Yes Status: Acute Assessment and Plan: Atorvastatin (10) Chronic hypokalemia Current Visit: Yes Status: Acute Assessment and Plan: K corrected. K 3.5 - Time Spent with Patient Total time spent is greater than 50% in coordination of care (as documented) at patient's floor/unit and/or counseling patient: Internal Medicine: Result - Labs CBC & Chem 7: 05/05/18 07:36 05/05/18 11:29 Labs: Short CBC 05/05/18 Range/Units 07:36 WBC 11.1 (4.3-11.1) K/mcL Hgb 10.7 L (11.5-15.4) g/dL Hct 33.6 L (35.3-44.9) % Plt Count 191 (140-400) K/mcL Cardiac Enzymes 05/05/18 Range/Units 06:05 Troponin I 0.06 H* (< 0.04) ng/mL - ABG Interpretation ABG results: PT/INR, D-dimer PT 10.6 Seconds (9.4-12.1) 05/05/18 07:36 - Impressions Impressions Echocardiogram Limited Views 05/04/18 13:54 Impressions: LVEF 35%. Not all LV wall segments are optimally visualized. Overall, LV systolic function appears to be moderately reduced with regional variation. Recommend use of Definity for future studies. Consult Discharge Plan - Plan Referrals: NONE,PCP [Primary Care Provider] - Prescriptions: Apixaban [Eliquis] 2.5 mg PO BID #60 tablet ____ (3) Pneumonia Qualifiers: Pneumonia type: due to unspecified organism Laterality: right Lung location: middle lobe of lung Qualified Code(s): J18.1 - Lobar pneumonia, unspecified organism (4) Hypertension Qualifiers: Hypertension type: essential hypertension Qualified Code(s): I10 - Essential (primary) hypertension (8) Coronary artery disease Qualifiers: Coronary Disease-Associated Artery/Lesion type: [place] artery [place] vs. transplanted heart: [place] heart Associated angina: without angina Qualified Code(s): I25.10 - Atherosclerotic heart disease of [place] coronary artery without angina pectoris
[2018-05-05] MEDS: Furosemide 40 MG/4 ML VIAL IVP SCH ×2 (11:36→17:31)
[2018-05-05 12:06] LABS: BUN/Creatinine Ratio 29 (6-26); Blood Urea Nitrogen 22 mg/dL (8-23); Calcium 8.5 mg/dL (8.6-10.3); Carbon Dioxide 30 mEq/L (23-29); Chloride 107 mEq/L (98-107); Glucose 114 mg/dL (70-105); Osmolality,Calculated 304 (280-300); Potassium 3.1 mEq/L (3.5-5.1); Sodium 145 mEq/L (136-145); eGFR For Non-African Americans > 60 (> 60)
[2018-05-05] MEDS: SACUBITRIL/VALSARTAN 97/103 MG TABLET PO SCH ×2 (14:33→21:16)
[2018-05-05] MEDS: Potassium Chloride Elixir 20 MEQ/15 ML UDC PO SCH ×2 (14:33→17:31)
[2018-05-05] MEDS ORDERED: Ipratropium/Albuterol Neb 3 ML IH PRN (18:20)
[2018-05-05] MEDS: Apixaban 2.5 MG TABLET PO SCH (21:16)
[2018-05-05] MEDS: Latanoprost 2.5 ML BOTTLE BOTH EYES SCH (21:17)
--- NOTE | 2018-05-06 09:55 | Cardiology Progress Note ---
Date of Encounter: 05/06/18 Time of Encounter: 09:52 Assessment and Plan (1) Atrial fibrillation with RVR Current Visit: Yes Status: Acute PAF, Currently SR with brief episode PAF on tele this AM. Continue BB. K 3.1--replace. [id number] (Age, HTN, CAD, CHF, Female). Recommend AC. Eliquis is $150/month. Discussed with pt and she states this is affordable. Since Eliquis was started, will stop ASA to avoid triple therapy/reduce bleeding risk. Pt reports living alone, being very functional and active and walking 2 miles/day recently without any recent falls. She is currently weak and unsteady. Will order PT/OT eval. Cardiology signing off. Reconsult PRN. 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 (2) Acute exacerbation of CHF (congestive heart failure) Current Visit: Yes Status: Acute TTE EF 35%, regional variations. Obtained TTE from outside facility 04/14/18 and EF was 25-30%, stated as similar compared to 10/2017. Confirmed reduced EF is not new. Presented with cough and dyspnea, hypoxic. Respiratory panel is positive for entero/rhino virus as well. BNP 2897. CXR Moderate interstitial opacities throughout both lungs may represe nt atypical pneumonia or moderate interstitial pulmonary edema. Started IV Lasix 40mg BID for diuresis. Euvolemic on exam. Will transition to PO Lasix 40mg daily. Recommend Strict I/Os, Na and fluid restriction, daily weights. Replace K. Qualifiers: Heart failure type: systolic Qualified Code(s): I50.23 - Acute on chronic systolic (congestive) heart failure (3) Elevated troponin Current Visit: Yes Status: Acute Troponins 0.03, 0.04, 0.03, 0.04, 0.06 in setting of acute on chronic CHF, entero/rhino virus and PAF. Suspect demand ischemia, nondiagnostic for ACS. TTE EF 35%, known to be reduced. (4) Coronary artery disease Current Visit: Yes Status: Inactive Per pt, [place] with PCI x 2 10/2017 in [place], [place]. Denies CP. LBBB on ECG. Continue Plavix, Statin, BB. Will stop ASA since Eliquis was started to avoid triple therapy. Qualifiers: Coronary Disease-Associated Artery/Lesion type: [place] artery [place] vs. transplanted heart: [place] heart Associated angina: without angina Qualified Code(s): I25.10 - Atherosclerotic heart disease of [place] coronary artery without angina pectoris (5) Ischemic cardiomyopathy Current Visit: Yes Status: Chronic TTE EF 35%. Prior TTE 04/16/18 EF 25-30% and states similar compared to 10/2017. Continue BB and Entresto. Follow-up with Dr. Basilio to discuss if ICD is warranted. Discussion w patient/family: The assessment and plan as outlined above was discussed with the patient and/or family members who expressed understanding and agreement. All questions were answered. Thank you for involving us in the care of your patient. Please call with any questions. I will discuss all the above with Dr. Bhagat and make changes as necessary. Subjective Principal diagnosis: PAF, CHF Interval history: No acute cardiac complaints this AM. Limited TTE resulted--LVEF 35%. Not all LV wall segments are optimally visualized. Overall, LV systolic function appears to be moderately reduced with regional variation. Obtained prior TTE from [facility]--EF 25-30% 04/14/18 and report states similar to prior TTE 10/2017. Objective Vital Signs, Last 4 Hours Temp Pulse Resp BP Pulse Ox 05/06/18 06:57 98.4 F 76 14 112/80 96 Vital Signs Temp Pulse Resp BP Pulse Ox 05/06/18 06:57 98.4 F 76 14 112/80 96 05/06/18 00:20 98.1 F 78 18 139/84 92 05/05/18 21:05 94 05/05/18 20:00 97.8 F 84 16 124/73 94 05/05/18 16:26 18 92 05/05/18 16:15 98.1 F 86 18 131/73 92 05/05/18 11:18 97.5 F L 83 19 132/67 96 05/05/18 10:59 16 97 Intake and Output 05/05/18 05/06/18 05/06/18 23:59 07:59 15:59 Intake Total 311 / 311 0 / 0 480 / 480 Output Total 750 / 750 Balance -439 / -439 0 / 0 480 / 480 Intake: IV Fluids Heparin 25,000 UNIT/500 ML D5W 25,000 unit In 500 ml @ 12 UNIT /KG/HR 12.727 mls/hr IVC .Q24H [facility] Rx#:[id number] Oral 280 / 280 0 / 0 480 / 480 Output: Urine 750 / 750 Other: Meal Dinner Breakfast Percent of Meal Consumed 50% 75% # Voids 200 Weight 53.65 kg Patient Weight 05/06/18 23:59 Weight 53.65 kg General: Conversant, No Apparent Distress HEENT: Atraumatic, Normocephaly, Mucus Membranes Moist Neck: No JVD, Normal carotid pulses Cardiac: Reg Rate and Rhythm, Normal S1 and S2, No Murmur Lungs: Normal Breath Sounds, No Wheeze, Rales, Rhonchi Neuro: Alert and responsive, No focal deficits noted Abdomen: Soft, Non-Tender Skin: No rashes noted on visualized skin Musculoskeletal: No Chest Wall Tenderness Extremities: No Clubbing, No Cyanosis, No Edema, Normal Pulses Results 05/05/18 07:36 05/05/18 11:29 Lab Results 05/05/18 11:29 Sodium 145 Potassium 3.1 L Chloride 107 Carbon Dioxide 30 H BUN 22 Creatinine 0.76 Glucose 114 H Calcium 8.5 L BMP 05/05/18 Range/Units 11:29 Sodium 145 (136-145) mEq/L Potassium 3.1 L (3.5-5.1) mEq/L Chloride 107 (98-107) mEq/L Carbon Dioxide 30 H (23-29) mEq/L BUN 22 (8-23) mg/dL Creatinine 0.76 (0.60-1.20) mg/dL Glucose 114 H (70-105) mg/dL Calcium 8.5 L (8.6-10.3) mg/dL Impressions Echocardiogram Limited Views 05/04/18 13:54 Impressions: LVEF 35%. Not all LV wall segments are optimally visualized. Overall, LV systolic function appears to be moderately reduced with regional variation. Recommend use of Definity for future studies. Active Medications Albuterol/Ipratropium (Duoneb) 3 ml IH QIDR PRN PRN Reason: Wheezing Stop: 11/02/18 23:01 Apixaban (Eliquis) 2.5 mg PO BID [facility] Stop: 11/04/18 21:01 Last Admin: 05/05/18 21:16 Dose: 2.5 mg Aspirin (Aspirin Ec) 81 mg PO DAILY [facility] Stop: 11/02/18 15:31 Last Admin: 05/05/18 07:51 Dose: 81 mg Atorvastatin Calcium (Lipitor) 80 mg PO HS [facility] Stop: 11/02/18 21:01 Last Admin: 05/05/18 21:17 Dose: 80 mg Clopidogrel Bisulfate (Plavix) 75 mg PO DAILY [facility] Stop: 11/02/18 15:31 Last Admin: 05/05/18 07:51 Dose: 75 mg Folic Acid (Folic Acid) 1 mg PO DAILY [facility] Stop: 11/02/18 15:31 Last Admin: 05/05/18 07:51 Dose: 1 mg Furosemide (Lasix) 40 mg IVP BIDDIURETIC [facility] Stop: 11/04/18 10:16 Last Admin: 05/05/18 17:31 Dose: 40 mg Latanoprost (Xalatan) 1 drop BOTH EYES HS [facility]; Protocol Stop: 11/02/18 21:01 Last Admin: 05/05/18 21:17 Dose: 1 drop Metoprolol Tartrate (Lopressor) 50 mg PO BID [facility] Stop: 11/02/18 15:31 Last Admin: 05/05/18 21:16 Dose: 50 mg Multivitamins/Calcium (Thera M Plus) 1 tab PO DAILY [facility] Stop: 11/02/18 15:31 Last Admin: 05/05/18 07:52 Dose: 1 tab Naloxone HCl (Narcan) 0.4 mg IVP Q2MIN PRN PRN Reason: SEE COMMENTS Stop: 11/02/18 10:41 Nitroglycerin (Nitroglycerin) 0.4 mg SL Q5MIN PRN PRN Reason: Chest Pain Stop: 11/02/18 04:14 Last Admin: 05/03/18 04:22 Dose: 0.4 mg Pregabalin (Lyrica) 75 mg PO TID [facility] Stop: 11/02/18 15:31 Last Admin: 05/05/18 21:16 Dose: 75 mg Sacubitril/Valsartan (Entresto 97 Mg-103 Mg Tablet) 1 tab PO BID [facility] Stop: 11/04/18 12:46 Last Admin: 05/05/18 21:16 Dose: 1 tab - Imaging and Cardiology Echo: report reviewed - EKG Interpretation EKG results cardiology: other (12 hr tele AVG HR 75, SR with brief PAF episodes noted) Consult Discharge Plan - Plan Referrals: NONE,PCP [Primary Care Provider] - Prescriptions: Apixaban [Eliquis] 2.5 mg PO BID #60 tablet
[2018-05-06] MEDS: Furosemide 40 MG/4 ML VIAL IVP SCH ×2 (10:18→17:47)
[2018-05-06] MEDS: Pregabalin 75 MG CAPSULE PO SCH ×3 (10:18→21:04)
[2018-05-06] MEDS: Multivit/Ca/Min/Fe/FA 1 TAB TABLET PO SCH (10:18)
[2018-05-06] MEDS: SACUBITRIL/VALSARTAN 97/103 MG TABLET PO SCH ×2 (10:19→21:05)
[2018-05-06] MEDS: Apixaban 2.5 MG TABLET PO SCH ×2 (10:19→21:05)
[2018-05-06] MEDS: Folic Acid 1 MG TABLET PO SCH (10:20)
[2018-05-06 10:33] LABS: Basophils # 0.1 K/mcL (0.0-0.2); Basophils % 0.8 %; Eosinophils # 0.5 K/mcL (0.0-0.6); Eosinophils % 4.7 %; Hematocrit 42.8 % (35.3-44.9); Hemoglobin 13.5 g/dL (11.5-15.4); Immature Granulocytes % 0.3 % (0-4); Lymphocytes # 2.6 K/mcL (0.6-4.6); Mean Corpuscular HGB Conc 31.5 g/dL (31.6-35.5); Mean Corpuscular Hemoglobin 27.5 pg (28.0-33.3); Mean Corpuscular Volume 87.2 fL (83.0-100.0); Mean Platelet Volume 10.7 fL (9.4-12.4); Monocytes # 0.8 K/mcL (0.0-1.3); Monocytes % 7.8 %; Platelet Count 270 K/mcL (140-400); Red Blood Count 4.91 M/mcL (3.82-4.97); Red Cell Distribution Width 14.8 % (11.5-14.5); Segmented Neutrophils % 60.4 %
--- NOTE | 2018-05-06 10:35 | Discharge Summary ---
Orders not resulted at time of discharge: Pending orders 05/03/18 05:40 Culture,Blood [BC] Stat 05/04/18 13:31 Sputum Culture [Culture,Sputum with Gram Stain] [RM] Routine 05/06/18 10:14 BMP [Basic Metabolic Panel] Stat CBC [Complete Blood Count] [HEME] Stat Date of Encounter: 05/06/18 Time of Encounter: 10:30 - Discharge Diagnosis (1) Acute systolic (congestive) heart failure Priority: Primary Status: Acute Assessment and Plan: 88 year old female Patient with coronary artery disease as well as CHF, thyroid disease, previous schwannoma presents emergency department for shortness of lavern ath associated with productive cough. She denies chest pain. Denies fever. The patient was found at her home to be hypoxic at 80% and her She was requiring 4 L to keep her pulse ox at 94% She was assessed with acute hypoxic respiratory failure secondary to acute worsening of chronic systolic CHF and viral pneumonia with enterovirus. She was diuresed with IV lasix and managed supportively for her viral pneumonia. She also went into atrial fibrillation with RVR and was started on eliquis and metoprolol. Her shortness of breath has improved and she is rate controlled, and will be going to a SNF on discharge (2) Atrial fibrillation with RVR Priority: Primary Status: Acute Assessment and Plan: Started on heparin drip overnight. Now rate controlled with metoprolol. Transitioned to apixaban for anticoagulation Cardiology following (3) Pneumonia Priority: Primary Status: Acute Qualifiers: Pneumonia type: due to unspecified organism Laterality: right Lung location: middle lobe of lung Qualified Code(s): J18.1 - Lobar pneumonia, unspecified organism (4) Hypertension Priority: Primary Status: Chronic Qualifiers: Hypertension type: essential hypertension Qualified Code(s): I10 - Esse ntial (primary) hypertension (5) Schwannoma Priority: Primary Status: Chronic (6) History of radiation therapy Priority: Primary Status: Chronic (7) Shortness of breath Priority: Primary Status: Acute (8) Coronary artery disease Priority: Primary Status: Inactive Qualifiers: Coronary Disease-Associated Artery/Lesion type: [place] artery [place] vs. transplanted heart: [place] heart Associated angina: without angina Qualified Code(s): I25.10 - Atherosclerotic heart disease of [place] coronary artery without angina pectoris (9) Hyperlipidemia Priority: Primary Status: Acute Qualifiers: Qualified Code(s): E78.5 - Hyperlipidemia, unspecified (10) Chronic hypokalemia Priority: Primary Status: Acute Hospital course: Ms. Fernandes is a 88 year old female - Time Spent with Patient Total time spent providing and/or coordinating discharge services: - Discharge Medications Prescriptions: Apixaban [Eliquis] 2.5 mg PO BID #60 tablet Atorvastatin [Lipitor] 80 mg PO HS 30 Days #30 tablet Furosemide [Lasix] 40 mg PO DAILY 30 Days #30 tablet Home Medications: Potassium 80 meq PO DAILY 10/03/16 [History] Cranberry 650 mg PO DAILY 11/11/16 [History] Daily Multivitamin Capsule 1 tab PO DAILY 11/11/16 [History] Folic Acid 400 mcg PO DAILY 11/11/16 [History] Brinzolamide/Brimonidine Tart [Simbrinza 1%-0.2% Eye Drops] 1 drop OP BID 11/29/16 [History] Latanoprost [Xalatan] 1 drop BOTH EYES HS 11/29/16 [History] Aspirin [Adult Aspirin] 81 mg PO DAILY 03/31/18 [History] Clopidogrel [Plavix] 75 mg PO DAILY 03/31/18 [History] Metoprolol Tartrate [Lopressor] 50 mg PO BID 03/31/18 [History] Pregabalin [Lyrica] 75 mg PO TID 03/31/18 [History] Atorvastatin [Lipitor] 80 mg PO HS 05/04/18 [History] Sacubitril/Valsartan [Entresto 97 mg-103 mg Tablet] 1 each PO BID 05/04/18 [History] Apixaban [Eliquis] 2.5 mg PO BID #60 tablet 05/05/18 [Rx] Atorvastatin [Lipitor] 80 mg PO HS 30 Days #30 tablet 05/06/18 [Rx] Furosemide [Lasix] 40 mg PO DAILY 30 Days #30 tablet 05/06/18 [Rx] Allergies/Adverse Reactions: Allergy/AdvReac Type Severity Reaction Status Date / Time ramipril Allergy Unknown See Verified 05/04/18 13:06 Comments Sulfa (Sulfonamide Allergy Unknown See Verified 05/04/18 13:06 Antibiotics) Comments shellfish derived Allergy Vomiting Verified 03/31/18 15:39 Estrogens AdvReac Mild See Verified 05/04/18 13:06 Comments levothyroxine sodium AdvReac Unknown See Verified 05/04/18 13:06 [From Synthroid] Comments Date of admission: 05/04/18 16:04 Primary care physician: PCP NONE Consults: 05/03/18 07:09 Consult to [place] Turner [CONS] Routine Reason for SW Consult: Discharge planning, patient currently requiring oxygen. 05/03/18 22:23 Consult to Nurse Navigator [CONS] Routine Comment: 05/05/18 07:05 Consult to Cardiology [CONS] Routine Comment: Consulting Provider: Cardiology Lynda Reason for Consult: A fib, with history of CHF. Also has history of PA without chest pain, and troponins 0.04->0.06. Call Completed: No 05/06/18 10:04 Consult to Physical Therapy [CONS] Routine Comment: Evaluate, develop and implement POC Reason for Consult: d/c planning Does patient have active BEDREST order?: No Is patient medically & hemodynamically stable?: Yes Patient assessed for mobility or mobilized this visit?: No 05/06/18 10:05 Consult to Occupational Therapy [CONS] Routine Comment: Evaluate, develop and implement POC Reason for Consult: d/c planning Does patient have active BEDREST order?: No Is patient medically & hemodynamically stable?: Yes Patient assessed for mobility or mobilized this visit?: No - Constitutional Vitals: Temp Pulse Resp BP Pulse Ox 98.4 F 76 14 112/80 96 05/06/18 06:57 05/06/18 06:57 05/06/18 06:57 05/06/18 06:57 05/06/18 06:57 Exam: Physical Exam General: Mild respiratory distress. Head: Normocephalic Atraumatic Eyes: PERRL, EOMI ENT: Airway patent, no stridor Neck: supple, no meningismus Chest: Lungs clear to auscultation bilateral Cardiac: Regular rate and rhythm, no murmurs, rubs or gallops Abdomen: soft, nontender, nondistended; no guarding, rebound, or tenderness to percussion Musculoskeletal: Calves symmetric, nontender, no palpable cord Skin: No rash, normal skin tone Neuro: Alert and Oriented to person, place, and time; No CN 2-12 symmetric and intact; left arm weaknesschronic, no other deficits. - Patient Status Disposition: Home, Self-Care Condition: Good - Discharge Instructions Follow Up With: Juliette Rodriguez CNP [Advanced Practice Nurse] - 05/15/18 9:00 am
[2018-05-06 10:52] LABS: BUN/Creatinine Ratio 29 (6-26); Blood Urea Nitrogen 25 mg/dL (8-23); Calcium 8.8 mg/dL (8.6-10.3); Carbon Dioxide 31 mEq/L (23-29); Chloride 105 mEq/L (98-107); Glucose 98 mg/dL (70-105); Osmolality,Calculated 304 (280-300); Sodium 145 mEq/L (136-145); eGFR For Non-African Americans > 60 (> 60)
[2018-05-06] MEDS: Latanoprost 2.5 ML BOTTLE BOTH EYES SCH (21:07)
--- NOTE | 2018-05-07 07:51 | Electrocardiograph Report ---
[place] [id number] Test Date: 2018-05-03 Pat Name: Shawanda Fernandes Department: EXAM2 Room: 2NE32 Gender: F Risk Professional: : [id number] Requested By: Amari Baca Order Number: [id number] Reading MD: Silverio Marti Measurements Intervals [place] Rate: 82 P: 69 PA: 188 QRS: -67 QRSD: 156 T: 100 QT: 448 QTc: 524 Interpretive Statements Sinus rhythm Possible left atrial enlargement Left bundle branch block Electronically Signed On 05-07-2018 7:49:25 EDT by Silverio Marti
[2018-05-07] MEDS ORDERED: Furosemide 40 MG TABLET PO SCH (09:00)
[2018-05-07 09:41] LABS: BUN/Creatinine Ratio 36 (6-26); Blood Urea Nitrogen 35 mg/dL (8-23); Calcium 8.4 mg/dL (8.6-10.3); Carbon Dioxide 28 mEq/L (23-29); Chloride 101 mEq/L (98-107); Glucose 120 mg/dL (70-105); Osmolality,Calculated 303 (280-300); Potassium 3.7 mEq/L (3.5-5.1); Sodium 142 mEq/L (136-145); eGFR For Non-African Americans 55 (> 60)
--- NOTE | 2018-05-07 10:45 | Internal Med Progress Note ---
Hospitalist Progress Note - Encounter Date of Encounter: 05/07/18 Time of Encounter: 08:30 - Exam Vitals: Temp Pulse Resp BP Pulse Ox 98.1 F 77 14 121/69 97 05/07/18 05:56 05/07/18 06:47 05/07/18 06:47 05/07/18 06:47 05/07/18 06:47 Exam: Physical Exam General: Mild respiratory distress. Head: Normocephalic Atraumatic Eyes: PERRL, EOMI ENT: Airway patent, no stridor Neck: supple, no meningismus Chest: Lungs clear to auscultation bilateral Cardiac: Regular rate and rhythm, no murmurs, rubs or gallops Abdomen: soft, nontender, nondistended; no guarding, rebound, or tenderness to percussion Musculoskeletal: Calves symmetric, nontender, no palpable cord Skin: No rash, normal skin tone Neuro: Alert and Oriented to person, place, and time; No CN 2-12 symmetric and intact; left arm weaknesschronic, no other deficits. - Assessment and Plan (1) Acute systolic (congestive) heart failure Current Visit: Yes Status: Acute Assessment and Plan: 88 year old female Patient with coronary artery disease as well as CHF, thyroid disease, previous schwannoma presents emergency department for shortness of breath associated with productive cough. She denies chest pain. Denies fever. The patient was found at her home to be hypoxic at 80% and her She was requiring 4 L to keep her pulse ox at 94% She was assessed with acute hypoxic respiratory failure secondary to acute worsening of chronic systolic CHF and viral pneumonia with enterovirus. She was diuresed with IV lasix and managed supportively for her viral pneumonia. She also went into atrial fibrillation with RVR and was started on eliquis and metoprolol. Her shortness of breath has improved and she is rate controlled, and will be going to a SNF on discharge 05/07. Awaiting discharge to SNF (2) Atrial fibrillation with RVR Current Visit: Yes Status: Acute Assessment and Plan: Started on heparin drip overnight. Now rate controlled with metoprolol. Transitioned to apixaban for anticoagulation Cardiology following (3) Pneumonia Current Visit: Yes Status: Acute Assessment and Plan: Viral pneumonia with enterovirus PCR positive. Supportive care. Improved (4) Hypertension Current Visit: No Status: Chronic Assessment and Plan: Lopressor (5) Schwannoma Current Visit: No Status: Chronic Assessment and Plan: Stable (6) History of radiation therapy Current Visit: No Status: Chronic Assessment and Plan: Due to lung CA (7) Shortness of breath Current Visit: Yes Status: Acute Assessment and Plan: - SOB due to interstitial pulmonary edema. Doubt PNA. Pt is afebrile and WBC 9.3 and WNL. Oxygen sat on admission 80% on room air. Not on home oxygen. Will check ambulatory pulse ox. - Blood Cx NGTD - Zithromax and Rocpehin but will DC as there is no evidence of PNA at this time. - Will check respiratory panel. Will check Echo as well. - CBC and CMP reviewed - Continue home dose of Lasix. - Tylenol 650 mg PO q 4-6 hr PRN pain or fever - Heparin 5000 U SQ BID (8) Coronary artery disease Current Visit: Yes Status: Inactive Assessment and Plan: On ASA and Atorvastatin (9) Hyperlipidemia Current Visit: Yes Status: Acute Assessment and Plan: Atorvastatin (10) Chronic hypokalemia Current Visit: Yes Status: Acute Assessment and Plan: K corrected. K 3.5 DVT Prophylaxis: Heparin - Time Spent with Patient Total time spent is greater than 50% in coordination of care (as documented) at patient's floor/unit and/or counseling patient: Internal Medicine: Result - Labs CBC & Chem 7: 05/06/18 10:14 05/07/18 09:05 Labs: Short CBC 05/06/18 Range/Units 10:14 WBC 9.9 (4.3-11.1) K/mcL Hgb 13.5 D (11.5-15.4) g/dL Hct 42.8 (35.3-44.9) % Plt Count 270 (140-400) K/mcL Neutrophils # 6.0 (1.6-8.9) K/mcL BMP 05/06/18 10:14 Sodium 145 Potassium 4.0 D Chloride 105 Carbon Dioxide 31 H BUN 25 H Creatinine 0.85 Glucose 98 Calcium 8.8 - ABG Interpretation ABG results: PT/INR, D-dimer PT 10.6 Seconds (9.4-12.1) 05/05/18 07:36 Consult Discharge Plan - Plan Referrals: Juliette Rodriguez LITHOGRAPHIC PHOTOGRAPHER [Advanced Practice Nurse] - 05/15/18 9:00 am Prescriptions: Apixaban [Eliquis] 2.5 mg PO BID #60 tablet Atorvastatin [Lipitor] 80 mg PO HS 30 Days #30 tablet Furosemide [Lasix] 40 mg PO DAILY 30 Days #30 tablet (3) Pneumonia Qualifiers: Pneumonia type: due to unspecified organism Laterality: right Lung location: middle lobe of lung Qualified Code(s): J18.1 - Lobar pneumonia, unspecified organism (4) Hypertension Qualifiers: Hypertension type: essential hypertension Qualified Code(s): I10 - Essential (primary) hypertension (8) Coronary artery disease Qualifiers: Coronary Disease-Associated Artery/Lesion type: [place] artery [place] vs. transplanted heart: [place] heart Associated angina: without angina Qualified Code(s): I25.10 - Atherosclerotic heart disease of [place] coronary artery without angina pectoris (9) Hyperlipidemia Qualifiers: Qualified Code(s): E78.5 - Hyperlipidemia, unspecified
[2018-05-07] MEDS: Apixaban 2.5 MG TABLET PO SCH (11:01)
[2018-05-07] MEDS: Folic Acid 1 MG TABLET PO SCH (11:01)
[2018-05-07] MEDS: SACUBITRIL/VALSARTAN 97/103 MG TABLET PO SCH (11:01)
[2018-05-07] MEDS: Multivit/Ca/Min/Fe/FA 1 TAB TABLET PO SCH (11:01)
[2018-05-07] MEDS: Pregabalin 75 MG CAPSULE PO SCH ×2 (11:01→15:32)
[2018-05-07 16:47] VITALS: BP 102/71
--- NOTE | 2018-05-07 17:19 | Physician Discharge Referral ---
- Diagnosis (1) Acute systolic (congestive) heart failure Priority: Primary Status: Acute (2) Atrial fibrillation with RVR Priority: Primary Status: Acute (3) Pneumonia Priority: Primary Status: Acute (4) Hypertension Priority: Primary Status: Chronic (5) Schwannoma Priority: Primary Status: Chronic (6) History of radiation therapy Priority: Primary Status: Chronic (7) Shortness of breath Priority: Primary Status: Acute (8) Coronary artery disease Priority: Primary Status: Inactive (9) Hyperlipidemia Priority: Primary Status: Acute (10) Chronic hypokalemia Priority: Primary Status: Acute - Transfer Medications Prescriptions: Apixaban [Eliquis] 2.5 mg PO BID #60 tablet Atorvastatin [Lipitor] 80 mg PO HS 30 Days #30 tablet Furosemide [Lasix] 40 mg PO DAILY 30 Days #30 tablet Home Medications: Potassium 80 meq PO DAILY 10/03/16 [History] Cranberry 650 mg PO DAILY 11/11/16 [History] Daily Multivitamin Capsule 1 tab PO DAILY 11/11/16 [History] Folic Acid 400 mcg PO DAILY 11/11/16 [History] Brinzolamide/Brimonidine Tart [Simbrinza 1%-0.2% Eye Drops] 1 drop OP BID 11/29/16 [History] Latanoprost [Xalatan] 1 drop BOTH EYES HS 11/29/16 [History] Aspirin [Adult Aspirin] 81 mg PO DAILY 03/31/18 [History] Clopidogrel [Plavix] 75 mg PO DAILY 03/31/18 [History] Metoprolol Tartrate [Lopressor] 50 mg PO BID 03/31/18 [History] Pregabalin [Lyrica] 75 mg PO TID 03/31/18 [History] Atorvastatin [Lipitor] 80 mg PO HS 05/04/18 [History] Sacubitril/Valsartan [Entresto 97 mg-103 mg Tablet] 1 each PO BID 05/04/18 [History] Apixaban [Eliquis] 2.5 mg PO BID #60 tablet 05/05/18 [Rx] Atorvastatin [Lipitor] 80 mg PO HS 30 Days #30 tablet 05/06/18 [Rx] Furosemide [Lasix] 40 mg PO DAILY 30 Days #30 tablet 05/06/18 [Rx] Allergies/Adverse Reactions: Allergy/AdvReac Type Severity Reaction Status Date / Time ramipril Allergy Unknown See Verified 05/04/18 13:06 Comments Sulfa (Sulfonamide Allergy Unknown See Verified 05/04/18 13:06 Antibiotics) Comments shellfish derived Allergy Vomiting Verified 03/31/18 15:39 Estrogens AdvReac Mild See Verified 05/04/18 13:06 Comments levothyroxine sodium AdvReac Unknown See Verified 05/04/18 13:06 [From Synthroid] Comments - Respiratory Orders Smoking Cessation: Smoking cessation has been advised. For more information, call the [place] Tobacco Quit Line at 2-358-RCCW-NOW. - Mobility Orders Ambulate - Rehabiliation Orders Rehab Potential: Good Rehab Orders: Evaluation for Physical Therapy - Diet Orders Cardiac CERTIFICATION: I certify that the transfer of the above named patient to an Extended Care Facility is necessary for the continuing treatment of the diagnosis listed. The above information is true and accurate reflection of patient's current condition. Confidential - Redisclosure prohibited without a patient's written consent.
--- NOTE | 2018-05-09 19:11 | Electrocardiograph Report ---
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
== END 2018-05-07 19:30 | DRG 291 ==
LOC: 2NENU 03:52 → EMEROOARM 03:52 → 2NENU 06:23 → SUATTDRO 05-04 16:04
PROVIDERS: ADMIT Pediatrics; ATTEND Student in an Organized Health Care Education/Training Program

== ENCOUNTER 2018-06-28 18:05 | Observation (INO) ==
--- NOTE | 2018-06-28 18:16 | Emergency Department Note ---
Disposition Clinical Impression: Pre-syncope, Hypoxia CHF exacerbation Qualifiers: Heart failure type: systolic Qualified Code(s): I50.23 - Acute on chronic systolic (congestive) heart failure Disposition: Admitted As Inpatient Condition: Good General Adult HPI - General Chief complaint: ED Shortness of Breath/Dyspnea Stated complaint: SOB Time Seen by Provider: 06/28/18 18:16 Source: patient, EMS Limitations: no limitations Nursing Notes Reviewed: Yes Vital Signs Reviewed: Yes - History of Present Illness HPI Narrative: 88 her old female presents emergency department with concern for source of breath on exertion. Also reports having a presyncopal episode today as well. Patient has any chest pain, pressure, tightness. She denies any cough, sputum production. Patient reports having history of atrial fibrillation. States that she has felt as if she may be going in and out of atrial fibrillation when she stands up an exertional self. Pain Scale: 0 - Related Data Home Medications Medication Instructions Recorded Confirmed RX: Potassium Chloride 20 meq PO QID #0 10/03/16 06/29/18 RX: Cranberry Fruit Extract 500 mg PO DAILY #0 11/11/16 06/29/18 [Cranberry] RX: Folic Acid 0.4 mg PO DAILY #0 11/11/16 06/29/18 RX: Multivitamin [One Daily 1 each PO DAILY #0 11/11/16 06/29/18 Essential] RX: Brinzolamide/Brimonidine Tart 1 drop OP BID 11/29/16 06/29/18 [Simbrinza 1%-0.2% Eye Drops] RX: Latanoprost [Xalatan] 1 drop BOTH EYES HS 11/29/16 06/29/18 RX: Clopidogrel [Plavix] 75 mg PO DAILY 03/31/18 06/29/18 RX: Metoprolol Tartrate [Lopressor] 50 mg PO BID 03/31/18 06/29/18 RX: Pregabalin [Lyrica] 75 mg PO BID 03/31/18 06/29/18 RX: Atorvastatin [Lipitor] 80 mg PO HS 05/04/18 06/29/18 RX: Furosemide [Lasix] 40 mg PO DAILY 06/29/18 06/29/18 RX: Sacubitril/Valsartan 24/26 mg 1 tab PO BID 06/29/18 06/29/18 [Entresto 24 mg-26 mg Tablet] Previous Rx's Medication Instructions Recorded RX: Apixaban [Eliquis] 2.5 mg PO BID #60 tablet 05/05/18 Allergies Allergy/AdvReac Type Severity Reaction Status Date / Time ramipril Allergy Unknown See Verified 05/04/18 13:06 Comments Sulfa (Sulfonamide Allergy Unknown See Verified 05/04/18 13:06 Antibiotics) Comments shellfish derived Allergy Vomiting Verified 03/31/18 15:39 Estrogens AdvReac Mild See Verified 05/04/18 13:06 Comments levothyroxine sodium AdvReac Unknown See Verified 05/04/18 13:06 [From Synthroid] Comments All systems ED: reviewed and negative except as stated. Review of Systems: As Per HPI Constitutional: Denies: fever Cardiovascular: Reports: syncope. Denies: chest pain Respiratory: Denies: cough, sputum production Gastrointestinal: Denies: abdominal pain, nausea, vomiting Genitourinary: Denies: urgency, dysuria, frequency Past Medical History - Past Medical History Medical history: Reports: arthritis, cardiomyopathy, CHF, coronary artery disease, glaucoma, hyperlipidemia, hypertension, myocardial infarction, thyroid disease, valvular heart disease Surgical history: Reports: appendectomy, , hysterectomy - Social History Smoking Status: Never smoker Smokeless Tobacco Status: No Alcohol use: Reports: none Drug use: Reports: none Physical Exam - General Limitations: no limitations General appearance: alert, anxious - Head Head exam: normocephalic - Eye Eye exam: Present: EOMI - ENT ENT exam: mucous membranes moist - Neck Neck exam: Present: trachea midline - Chest Chest inspection: Present: normal inspection, symmetric chest wall rise - Respiratory Respiratory exam: Present: normal lung sounds bilaterally. Absent: respiratory distress, accessory muscle use - Cardiovascular Cardiovascular exam: Present: regular rate, normal rhythm, normal heart sounds - Abdominal Exam Abdominal exam: Present: soft, Non-Tender. Absent: tenderness, distention, guarding, rebound - Extremities Exam Extremities exam: Present: full ROM - Back Exam Back exam: Present: full ROM - Neurological Exam Neurological exam: Present: alert, oriented X3 - Psychiatric Psychiatric exam: Present: normal affect, normal mood - Skin Skin exam: Present: warm, dry, intact, normal color. Absent: rash Course Vital Signs Temperature 97.4 F L 12/16/18 18:10 Pulse Rate 79 06/28/18 18:10 Respiratory Rate 16 06/28/18 18:10 Blood Pressure 161/91 06/28/18 18:10 O2 Sat by Pulse Oximetry 95 06/28/18 18:10 Temperature 97.6 F 06/30/18 07:42 Pulse Rate 69 06/30/18 07:42 Respiratory Rate 16 06/30/18 07:42 Blood Pressure 115/62 06/30/18 07:42 O2 Sat by Pulse Oximetry 93 06/30/18 07:42 Oxygen Delivery Oxygen Delivery Nasal Cannula Medical Decision Making - [facility] Narrative Medical decision making narrative: 88-year-old female presented to emergency department with concern for presyncopal episode with known history of atrial fibrillation and dyspnea on exertion. Patient has oxygen saturation ranges from 95% to 88% in the room. Patient was started on 2 L of oxygen via nasal cannula which corrected it. Not currently in atrial fibrillation. No ischemic ST changes on her EKG. patient's chest x-ray reveals cardiomegaly and small effusions with perihilar interstitial prominence residential assistant with pulmonary vascular congestion. Troponin was negative. BNP was 3221. More elevated than her recent which was in the 2900s. We obtained a d-dimer that was normal per age-adjusted value. Patient admitted to the hospitalist for further management of her CHF exacerbation as well as her new requirement for oxygen, and her presyncopal episode today. There is concern that patient may be going in and out of atrial fibrillation at home when she exerts herself. After discussion with the hospitalist, patient was given 40 mg of Lasix IV. Chest X-Ray 06/28/18 18:17 IMPRESSION: Cardiomegaly and small effusions with perihilar interstitial prominence likely related to pulmonary vascular congestion. D/ / Madonna Moreira MD / Madonna Moreira MD Interpreting Provider: Madonna Moreira MD - Lab Data Result diagrams: 06/29/18 03:34 06/30/18 03:53 Lab Results 06/28/18 06/28/18 06/28/18 Range/Units 18:17 18:17 18:17 WBC 4.4 (4.3-11.1) K/mcL RBC 4.77 (3.82-4.97) M/mcL Hgb 13.1 (11.5-15.4) g/dL Hct 41.0 (35.3-44.9) % MCV 86.0 (83.0-100.0) fL MCH 27.5 L (28.0-33.3) pg MCHC 32.0 (31.6-35.5) g/dL RDW 14.5 (11.5-14.5) % Plt Count 200 (140-400) K/mcL MPV 10.8 (9.4-12.4) fL Immature Gran % 0.2 (0-4) % Seg Neutrophils % 54.8 % Lymphocytes % 21.1 % Monocytes % 16.3 % Eosinophils % 6.7 % Basophils % 0.9 % Neutrophils # 2.4 (1.6-8.9) K/mcL Lymphocytes # 0.9 (0.6-4.6) K/mcL Monocytes # 0.7 (0.0-1.3) K/mcL Eosinophils # 0.3 (0.0-0.6) K/mcL Basophils # 0.0 (0.0-0.2) K/mcL D-Dimer (0-500) ng/mLFEU Sodium 144 (136-145) mEq/L Potassium 3.2 L (3.5-5.1) mEq/L Chloride 105 (98-107) mEq/L Carbon Dioxide 26 (23-29) mEq/L BUN 17 (8-23) mg/dL Creatinine 0.65 (0.60-1.20) mg/dL Est GFR ( Amer) > 60 (> 60) Est GFR (Non-Af Amer) > 60 (> 60) BUN/Creatinine Ratio 26 (6-26) Glucose 144 H (70-105) mg/dL Calculated Osmolality 302 H (280-300) Lactic Acid (0.5-2.2) mmol/L Calcium 8.4 L (8.6-10.3) mg/dL Troponin I 0.03 (< 0.04) ng/mL B-Natriuretic Peptide 3221 H (Less than 100) pg/mL 06/28/18 06/28/18 Range/Units 18:25 18:29 WBC (4.3-11.1) K/mcL RBC (3.82-4.97) M/mcL Hgb (11.5-15.4) g/dL Hct (35.3-44.9) % MCV (83.0-100.0) fL MCH (28.0-33.3) pg MCHC (31.6-35.5) g/dL RDW (11.5-14.5) % Plt Count (140-400) K/mcL MPV (9.4-12.4) fL Immature Gran % (0-4) % Seg Neutrophils % % Lymphocytes % % Monocytes % % Eosinophils % % Basophils % % Neutrophils # (1.6-8.9) K/mcL Lymphocytes # (0.6-4.6) K/mcL Monocytes # (0.0-1.3) K/mcL Eosinophils # (0.0-0.6) K/mcL Basophils # (0.0-0.2) K/mcL D-Dimer 564 H (0-500) ng/mLFEU Sodium (136-145) mEq/L Potassium (3.5-5.1) mEq/L Chloride (98-107) mEq/L Carbon Dioxide (23-29) mEq/L BUN (8-23) mg/dL Creatinine (0.60-1.20) mg/dL Est GFR ( Amer) (> 60) Est GFR (Non-Af Amer) (> 60) BUN/Creatinine Ratio (6-26) Glucose (70-105) mg/dL Calculated Osmolality (280-300) Lactic Acid 2.0 (0.5-2.2) mmol/L Calcium (8.6-10.3) mg/dL Troponin I (< 0.04) ng/mL B-Natriuretic Peptide (Less than 100) pg/mL - EKG Data EKG #1 EKG attestation: Yes I reviewed and interpreted this EKG. EKG results narrative: 18:18 Heart rate 69 beats for minute, NJ interval 177 ms, QRS duration 150 ms, QTC 472 ms, left axis deviation. Sinus rhythm with a ventricular rate of 67 bpm. No evidence of any ischemic changes. There is evidence of left bundle-branch block is consistent with p revious EKG. Does not meet Scarbossa's criteria. Attestation Statement - Attestation Attestation: I, Tevin Shelton, examined this patient and my medical decision-making was reviewed with the SUPERVISOR BROADLOOM/PA/Advanced Practice Nurse/Resident Physician. I agree with the documented findings, disposition and treatment plan as described except to the extent set forth below. 88-year-old male presents emergency room with concerns of increasing weakness and fatigue with exertion. She reports having orthopnea. She reports a near syncopal episode today. Patient reports episodes of palpitations which are similar to her history of atrial fibrillation. Patient does not have chest pain emergency department. Patient denies recent trauma. Laboratory evaluation shows elevated BNP consistent with her history of congestive heart failure. Jackie jennings will be admitted to the hospitalist for further care and evaluation of persistent near syncopal episodes and congestive heart failure. She was given Lasix in the emergency department. Critical care time = 0
[2018-06-28 18:42] LABS: Basophils % 0.9 %; Eosinophils # 0.3 K/mcL (0.0-0.6); Eosinophils % 6.7 %; Hemoglobin 13.1 g/dL (11.5-15.4); Immature Granulocytes % 0.2 % (0-4); Lymphocytes # 0.9 K/mcL (0.6-4.6); Lymphocytes % 21.1 %; Mean Corpuscular Hemoglobin 27.5 pg (28.0-33.3); Mean Platelet Volume 10.8 fL (9.4-12.4); Monocytes # 0.7 K/mcL (0.0-1.3); Monocytes % 16.3 %; Neutrophils # 2.4 K/mcL (1.6-8.9); Platelet Count 200 K/mcL (140-400); Red Blood Count 4.77 M/mcL (3.82-4.97); Red Cell Distribution Width 14.5 % (11.5-14.5); Segmented Neutrophils % 54.8 %
[2018-06-28 19:02] LABS: BUN/Creatinine Ratio 26 (6-26); Blood Urea Nitrogen 17 mg/dL (8-23); Calcium 8.4 mg/dL (8.6-10.3); Carbon Dioxide 26 mEq/L (23-29); Chloride 105 mEq/L (98-107); Glucose 144 mg/dL (70-105); Osmolality,Calculated 302 (280-300); Potassium 3.2 mEq/L (3.5-5.1); Sodium 144 mEq/L (136-145); eGFR For Non-African Americans > 60 (> 60)
[2018-06-28 19:04] LABS: Troponin I 0.03 ng/mL (< 0.04)
[2018-06-28] MEDS ORDERED: Furosemide 40 MG/4 ML VIAL IVP ONE (20:05)
[2018-06-29] MEDS ORDERED: Naloxone 0.4 MG/ML INJ IVP PRN (02:27)
--- NOTE | 2018-06-29 02:41 | Internal Med History&Physical ---
Date of Encounter: 06/29/18 Time of Encounter: 01:00 Internal Medicine - H&P: HPI Chief complaint: CHF exacerbation Admitted From: Emergency Dept Plans for Post Hospital Care: Home History of present illness: Ms. Fernandes is a 88 year old female Patient presented to the ER for worsening shortness of breath, particularly when laying down. She says that she just could not catch her breath. She has been here in the hospital several times this year with similar complaints. She eventually got worried and called EMS to help her out, feeling bad because she, "did not want to be a bother." She has recently moved back to [place] from [place], [place] over the last year and is still getting established for medical care. She has a history of congestive heart failure, atrial fibrillation and had a heart attack last October. In the ER, patient's CBC was within normal limits. BMP showed a potassium of 3.2 and d-dimer was elevated to 564, though with age adjustment this was considered not elevated. Troponin was undetectable. BNP was 3221, up from her previous visit in April of 2897. She was given a dose of KCl and 40mg of IV lasix and sent to the medical floor for further management. Upon my assessment, patient has no complaints. She is urinating frequently since the lasix. She denies nausea, vomiting, chest pain, diarrhea, constipation and abdominal pain. She currently has no shortness of breath, even while laying down. She sees Dr. Kennedy in [place] for her cardiac issues. 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 Past Med Surg Social Fam HX - Past Medical History Medical history: arthritis, cardiomyopathy, CHF, coronary artery disease, glaucoma, hyperlipidemia, hypertension, myocardial infarction, thyroid disease, valvular heart disease Additional medical history: lung cancer Psychiatric history: no psych history - Past Surgical History Surgical History: appendectomy, , hysterectomy - Social History Smoking Status: Never smoker Smokeless Tobacco Status: No Alcohol use: none Drug use: none - Family History Mother Living Status: Age at : 82 Cause of : unknown Hx Family Cardiac Disorders: Yes Hx Family Respiratory Disorders: No Hx Family Cancer: Yes Hx Family GI Disorders: No Hx Family Endocrine Disorder: No Hx Family Neuromuscular Disorders: No Hx Family Neurologic Disorders: No Hx Family HEENT Disorders: No Hx Family Autoimmune Disorders: No Father Living Status: Age at : 78 Cause of : cancer Sister Age: 82 Living Status: Still Living Internal Medicine - H&P: Meds Potassium 80 meq PO DAILY 10/03/16 [History] Cranberry 650 mg PO DAILY 11/11/16 [History] Daily Multivitamin Capsule 1 tab PO DAILY 11/11/16 [History] Folic Acid 400 mcg PO DAILY 11/11/16 [History] Brinzolamide/Brimonidine Tart [Simbrinza 1%-0.2% Eye Drops] 1 drop OP BID 11/29/16 [History] Latanoprost [Xalatan] 1 drop BOTH EYES HS 11/29/16 [History] Aspirin [Adult Aspirin] 81 mg PO DAILY 03/31/18 [History] Clopidogrel [Plavix] 75 mg PO DAILY 03/31/18 [History] Metoprolol Tartrate [Lopressor] 50 mg PO BID 03/31/18 [History] Pregabalin [Lyrica] 75 mg PO TID 03/31/18 [History] Atorvastatin [Lipitor] 80 mg PO HS 05/04/18 [History] Sacubitril/Valsartan [Entresto 97 mg-103 mg Tablet] 1 each PO BID 05/04/18 [History] Apixaban [Eliquis] 2.5 mg PO BID #60 tablet 05/05/18 [Rx] Allergy/AdvReac Type Severity Reaction Status Date / Time ramipril Allergy Unknown See Verified 05/04/18 13:06 Comments Sulfa (Sulfonamide Allergy Unknown See Verified 05/04/18 13:06 Antibiotics) Comments shellfish derived Allergy Vomiting Verified 03/31/18 15:39 Estrogens AdvReac Mild See Verified 05/04/18 13:06 Comments levothyroxine sodium AdvReac Unknown See Verified 05/04/18 13:06 [From Synthroid] Comments All Systems PM: A 10-system review of systems was performed and is negative for pertinent findings except as documented above in the HPI. - Constitutional Vitals: Temp Pulse Resp BP Pulse Ox 98.2 F 96 16 157/91 94 06/28/18 21:55 06/28/18 21:55 06/28/18 21:55 06/28/18 21:55 06/28/18 22:19 General appearance: Present: cooperative, A&O X 3, pleasant, no acute distress, answers questions appropriately Exam: - - Head Head exam: Present: normal inspection - Eye Eye exam: Present: EOMI, normal appearance - Respiratory Respiratory exam: Present: rales. Absent: chest wall tenderness, CTAB, respiratory distress, rhonchi, wheezes Additional comments: Crackles right worse than left - Cardiovascular Cardiovascular exam: Present: RRR. Absent: diastolic murmur, systolic murmur - GI/Abdominal GI/Abdominal exam: Present: normal bowel sounds, soft. Absent: tenderness - Extremities Exam Extremities exam: Present: warm, radial pulses palpable and symmetrical. Absent: calf tenderness, pedal edema, tenderness - Neurological Exam Neurological exam: Present: no focal deficits, strengths equal and symetr throughout. Absent: motor sensory deficit, facial droop, speech deficit - Skin Skin exam: Present: dry, normal color, warm Internal Med - H&P Results - Labs CBC & Chem 7: 06/28/18 18:17 06/28/18 18:17 Labs: Short CBC 06/28/18 Range/Units 18:17 WBC 4.4 (4.3-11.1) K/mcL Hgb 13.1 (11.5-15.4) g/dL Hct 41.0 (35.3-44.9) % Plt Count 200 (140-400) K/mcL Neutrophils # 2.4 (1.6-8.9) K/mcL BMP 06/28/18 18:17 Sodium 144 Potassium 3.2 L Chloride 105 Carbon Dioxide 26 BUN 17 Creatinine 0.65 Glucose 144 H Calcium 8.4 L Cardiac Enzymes 06/28/18 Range/Units 18:17 Troponin I 0.03 (< 0.04) ng/mL - Impressions ITS Impressions Chest X-Ray 06/28/18 18:17 IMPRESSION: Cardiomegaly and small effusions with perihilar interstitial prominence likely related to pulmonary vascular congestion. D/ / Madonna Moreira MD / Madonna Moreira MD Interpreting Provider: Madonna Moreira MD - Assessment and plan (1) Acute exacerbation of CHF (congestive heart failure) Current Visit: Yes Status: Acute Assessment and plan: Patient's BNP elevated to 3221. Mild crackles at the lung bases right more than left. IV lasix given in the ER. Continue IV lasix 40mg daily Daily weights Strict I's & O's Oxygen supplementation as needed Qualifiers: Heart failure type: systolic Qualified Code(s): I50.23 - Acute on chronic systolic (congestive) heart failure (2) Chronic hypokalemia Current Visit: No Status: Acute Assessment and plan: Patient's potassium 3.2 in the ER. Given 40mEq there. Will need to continue considering patient will be on lasix. Continue with 40mEq of IV KCl now Recheck labs in the AM. Check magnesium (3) Shortness of breath Current Visit: No Status: Acute Assessment and plan: Secondary to CHF exacerbation. Treatment as above Oxygen as needed. (4) History of atrial fibrillation Current Visit: Yes Status: Acute Assessment and plan: Currently rate controlled. Cardiac monitoring Continue home meds. (5) DVT prophylaxis Current Visit: Yes Status: Acute Assessment and plan: Patient on eliquis - Time Spent With Patient Total time spent is greater than 50% in coordination of care (as documented) at patient's floor/unit and/or counseling patient: Greater than 35 minutes
[2018-06-29] MEDS ORDERED: Potassium Chloride 40 MEQ, Lidocaine 1% 2 ML in D5% in Water 500 ML IVPB ONE (03:00)
[2018-06-29 04:00] LABS: Hematocrit 40.5 % (35.3-44.9); Hemoglobin 12.9 g/dL (11.5-15.4); Mean Corpuscular HGB Conc 31.9 g/dL (31.6-35.5); Mean Corpuscular Hemoglobin 27.2 pg (28.0-33.3); Mean Corpuscular Volume 85.3 fL (83.0-100.0); Mean Platelet Volume 11.2 fL (9.4-12.4); Platelet Count 196 K/mcL (140-400); Red Blood Count 4.75 M/mcL (3.82-4.97); Red Cell Distribution Width 14.5 % (11.5-14.5)
[2018-06-29 04:15] LABS: BUN/Creatinine Ratio 24 (6-26); Blood Urea Nitrogen 15 mg/dL (8-23); Calcium 8.6 mg/dL (8.6-10.3); Carbon Dioxide 28 mEq/L (23-29); Chloride 106 mEq/L (98-107); Glucose 119 mg/dL (70-105); Osmolality,Calculated 302 (280-300); Potassium 3.4 mEq/L (3.5-5.1); Sodium 145 mEq/L (136-145); eGFR For Non-African Americans > 60 (> 60)
[2018-06-29] MEDS: Aspirin Enteric Coated 81 MG Tablet PO SCH (07:52)
[2018-06-29] MEDS: Apixaban 2.5 MG TABLET PO SCH ×2 (07:52→20:53)
[2018-06-29] MEDS: Pregabalin 75 MG CAPSULE PO SCH ×3 (07:52→20:53)
[2018-06-29] MEDS ORDERED: Furosemide 40 MG/4 ML VIAL IVP SCH (08:00)
[2018-06-29] MEDS: SACUBITRIL/VALSARTAN 97/103 MG TABLET PO SCH ×2 (10:33→20:53)
--- NOTE | 2018-06-29 15:09 | Internal Med Progress Note ---
<Tabatha Unger P - Last Filed: 06/29/18 15:52> Hospitalist Progress Note - Encounter Date of Encounter: 06/29/18 Time of Encounter: 02:00 - Subjective Interval History: 88-year-old female with past medical history of cardiomyopathy, CHF, A. fib ,coronary artery disease, hyperlipidemia, hypertension, myocardial infarction, thyroid disease, valvular heart disease admitted to inpatient from emergency for shortness of breath, orthopnea. . She is a patient of chronic heart failure under regular medication.In ED her BNP was 3221, d-dimer was 564, potassium was 3.2. Her chest x-ray done in ED showed Cardiomegaly and small effusions with perihilar interstitial prominence likely related to pulmonary vascular congesti on. Echocardiography done before showed ejection fraction 35% with systolic dysfunction. Her recent EKG showed :Sinus rhythm Probable left atrial enlargement ,Left bundle branch block. She was admitted for monitoring her cardiac status and IV Lasix 40 twice a day. The patient is doing better after admission. During my bedside visit today, she was lying comfortably on the bed , well alert to time place and person, not in acute distress, answering question appropriately, her vitals temperature 97.8, pulse 79, saturation 93%.. After getting IV Lasix medication, she is doing good , she denied any gravity shortness of breath, orthopnea. - Exam Vitals: Temp Pulse Resp BP Pulse Ox 97.8 F 15 15 120/66 93 06/29/18 11:42 06/29/18 11:42 06/29/18 06:31 06/29/18 11:42 06/29/18 11:42 Exam: -General appearance: Present: cooperative, pleasant, no acute distress, answers questions appropriately Exam: -Head Head exam: Present: normal inspection - Eye Eye exam: Present: EOMI, normal appearance - Respiratory Respiratory exam: Present: CTAB. Absent: rales, respiratory distress, wheezes - Cardiovascular Cardiovascular exam: Present: RRR. Absent: diastolic murmur, systolic murmur - GI/Abdominal GI/Abdominal exam: Present: normal bowel sounds, soft, tenderness Additional comments: Right-sided tenderness with palpation - Extremities Exam Extremities exam: Present: warm, radial pulses palpable and symmetrical. Absent: calf tenderness, pedal edema, tenderness - Neurological Exam Neurological exam: Present: no focal deficits, strengths equal and symetr th roughout. Absent: motor sensory deficit, facial droop, speech deficit - Skin Skin exam: Present: dry, normal color, warm - Assessment and Plan (1) Acute on chronic heart failure Current Visit: Yes Status: Acute Assessment and Plan: The patient has history of heart failure/systolic heart failure and taking medication and see has history of heart attack in October 2018. The patient had shortness of breath and orthopnea with mild bilateral pedal edema BNP done at ED was 3221, echocardiography done before showed systolic dysfunction with ejection fraction 35% X-ray chest done in ED showed pulmonary condition. IV Lasix 40 MG twice a day started. Today we changed IV Lasix 20 MG IV twice a day The patient is symptomatically better. She is on no longer has exaggerated shortness of breath. (2) Chronic hypokalemia Current Visit: No Status: Acute Assessment and Plan: Potassium level was 3.2 in ED and the patient was on potassium supplementation Today's serum potassium level is 3.4. sodium level 145 (3) Afib Current Visit: Yes Status: Acute Assessment and Plan: She is a chronic patient of A. fib Noted has been controlled She is on Eliqus , aspirin & Plavix (4) Diabetes Current Visit: Yes Status: Acute Assessment and Plan: She is chronic patient of diabetes and presented to hypoglycemia He was put on levemir and lispro /on sliding scale: His blood glucose level is 160 We are monitoring his blood glucose regularly. - Time Spent with Patient Total time spent is greater than 50% in coordination of care (as documented) at patient's floor/unit and/or counseling patient: Internal Medicine: Result - Labs CBC & Chem 7: 06/29/18 03:34 06/29/18 03:34 Labs: Short CBC 06/28/18 06/29/18 Range/Units 18:17 03:34 WBC 4.4 5.3 (4.3-11.1) K/mcL Hgb 13.1 12.9 (11.5-15.4) g/dL Hct 41.0 40.5 (35.3-44.9) % Plt Count 200 196 (140-400) K/mcL Neutrophils # 2.4 (1.6-8.9) K/mcL BMP 06/28/18 06/29/18 18:17 03:34 Sodium 144 145 Potassium 3.2 L 3.4 L Chloride 105 106 Carbon Dioxide 26 28 BUN 17 15 Creatinine 0.65 0.62 Glucose 144 H 119 H Calcium 8.4 L 8.6 Cardiac Enzymes 06/28/18 Range/Units 18:17 Troponin I 0.03 (< 0.04) ng/mL - ABG Interpretation ABG results: PT/INR, D-dimer D-Dimer 564 ng/mLFEU (0-500) H 06/28/18 18:25 - Impressions Impressions Chest X-Ray 06/28/18 18:17 IMPRESSION: Cardiomegaly and small effusions with perihilar interstitial prominence likely related to pulmonary vascular congestion. D/ / Madonna Moreira MD / Madonna Moreira MD Interpreting Provider: Madonna Moreira MD Consult Discharge Plan - Plan Referrals: Juliette Rodriguez CNP [Primary Care Provider] - 07/03/18 10:15 am () <Alice Young - Last Filed: 06/29/18 16:27> Hospitalist Progress Note - Encounter Date of Encounter: 06/29/18 - Exam Vitals: Temp Pulse Resp BP Pulse Ox 97.8 F 15 15 120/66 93 06/29/18 11:42 06/29/18 11:42 06/29/18 06:31 06/29/18 11:42 06/29/18 11:42 - Time Spent with Patient Total time spent is greater than 50% in coordination of care (as documented) at patient's floor/unit and/or counseling patient: Internal Medicine: Result - Labs CBC & Chem 7: 06/29/18 03:34 06/29/18 03:34 Labs: Short CBC 06/28/18 06/29/18 Range/Units 18:17 03:34 WBC 4.4 5.3 (4.3-11.1) K/mcL Hgb 13.1 12.9 (11.5-15.4) g/dL Hct 41.0 40.5 (35.3-44.9) % Plt Count 200 196 (140-400) K/mcL Neutrophils # 2.4 (1.6-8.9) K/mcL BMP 06/28/18 06/29/18 18:17 03:34 Sodium 144 145 Potassium 3.2 L 3.4 L Chloride 105 106 Carbon Dioxide 26 28 BUN 17 15 Creatinine 0.65 0.62 Glucose 144 H 119 H Calcium 8.4 L 8.6 Cardiac Enzymes 06/28/18 Range/Units 18:17 Troponin I 0.03 (< 0.04) ng/mL - ABG Interpretation ABG results: PT/INR, D-dimer D-Dimer 564 ng/mLFEU (0-500) H 06/28/18 18:25 - Impressions Impressions Chest X-Ray 06/28/18 18:17 IMPRESSION: Cardiomegaly and small effusions with perihilar interstitial prominence likely related to pulmonary vascular congestion. D/ / Madonna Moreira MD / Madonna Moreira MD Interpreting Provider: Madonna Moreira MD - Attending Attestation I examined this patient and my medical decision-making was reviewed with the Resident Physician Dr. Unger. I agree with the documented findings, disposition and treatment plan as described except to the extent set forth below. Ms. Pereyra is a 88 y/o F with known past medical history of systolic CHF, hypertension, hyperlipidemia and CAD patient admitted here for worsening shortness of breath, orthopnea and PND. Patient was started on IV Lasix. Her symptoms improved today. She is breathing comfortably on room air. Still having mild dyspnea on exertion. Chest: Diminished BS b/l No wheezing, No crackles No rales Heart: S1S2+ RRR a/p 1. Acute on chronic systolic CHF exacerbation Improving cont IV Lasix 20mg IV BID Strict I & O and Daily weight Cont entresto and BB
--- NOTE | 2018-06-29 15:32 | Electrocardiograph Report ---
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
--- NOTE | 2018-06-29 15:33 | Electrocardiograph Report ---
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
[2018-06-29] MEDS: Furosemide 20 MG/2 ML VIAL IVP SCH (20:53)
[2018-06-30 04:22] LABS: BUN/Creatinine Ratio 26 (6-26); Blood Urea Nitrogen 21 mg/dL (8-23); Calcium 8.7 mg/dL (8.6-10.3); Carbon Dioxide 24 mEq/L (23-29); Chloride 104 mEq/L (98-107); Glucose 103 mg/dL (70-105); Magnesium 1.8 mg/dL (1.6-2.6); Osmolality,Calculated 297 (280-300); Potassium 3.3 mEq/L (3.5-5.1); Sodium 142 mEq/L (136-145); eGFR For Non-African Americans > 60 (> 60)
[2018-06-30 07:44] VITALS: BP 115/62
[2018-06-30] MEDS: Furosemide 20 MG/2 ML VIAL IVP SCH (07:52)
[2018-06-30] MEDS: Pregabalin 75 MG CAPSULE PO SCH (07:53)
[2018-06-30] MEDS: Aspirin Enteric Coated 81 MG Tablet PO SCH (07:53)
[2018-06-30] MEDS: SACUBITRIL/VALSARTAN 97/103 MG TABLET PO SCH (07:53)
[2018-06-30] MEDS: Apixaban 2.5 MG TABLET PO SCH (07:53)
--- NOTE | 2018-06-30 10:42 | Discharge Summary ---
- NOTES TO OUTPATIENT PROVIDER Notes to Outpatient Provider: Follow with PCP in one week. Please check daily weights. If you gain more than 2 lbs and if you notice any shortness of breath, bilateral lower extremity edema please take an extra dose of Lasix to get rid of the fluid. Date of Encounter: 06/30/18 Time of Encounter: 10:35 - Discharge Diagnosis (1) Acute on chronic systolic (congestive) heart failure Priority: Primary Status: Acute (2) Ischemic cardiomyopathy Priority: Secondary Status: Chronic (3) History of atrial fibrillation Priority: Secondary Status: Acute (4) Chronic hypokalemia Priority: Secondary Status: Acute (5) Hyperlipidemia Priority: Secondary Status: Acute Qualifiers: Qualified Code(s): E78.5 - Hyperlipidemia, unspecified (6) Hypertension Priority: Secondary Status: Chronic Qualifiers: Hypertension type: essential hypertension Qualified Code(s): I10 - Essential (primary) hypertension Hospital course: Ms. Pereyra is a 88 y/o F with known past medical history of systolic CHF, hypertension, hyperlipidemia and CAD patient admitted here for worsening shortness of breath, orthopnea and PND. Patient was started on IV Lasix. Her symptoms improved today. She is breathing comfortably on RA. She denied CP / SOB today. Will d.c her home in stable condition today. Recommend to continue taking Lasix 40mg PO Daily, and check daily weight. - Time Spent with Patient Total time spent providing and/or coordinating discharge services: - Discharge Medications Home Medications: Potassium Chloride 20 meq PO QID #0 10/03/16 [History] Cranberry Fruit Extract [Cranberry] 500 mg PO DAILY #0 11/11/16 [History] Folic Acid 0.4 mg PO DAILY #0 11/11/16 [History] Multivitamin [One Daily Essential] 1 each PO DAILY #0 11/11/16 [History] Brinzolamide/Brimonidine Tart [Simbrinza 1%-0.2% Eye Drops] 1 drop OP BID 11/29/16 [History] Latanoprost [Xalatan] 1 drop BOTH EYES HS 11/29/16 [History] Clopidogrel [Plavix] 75 mg PO DAILY 03/31/18 [History] Metoprolol Tartrate [Lopressor] 50 mg PO BID 03/31/18 [History] Pregabalin [Lyrica] 75 mg PO BID 03/31/18 [History] Atorvastatin [Lipitor] 80 mg PO HS 05/04/18 [History] Apixaban [Eliquis] 2.5 mg PO BID #60 tablet 05/05/18 [Rx] Furosemide [Lasix] 40 mg PO DAILY 06/29/18 [History] Sacubitril/Valsartan 24/26 mg [Entresto 24 mg-26 mg Tablet] 1 tab PO BID 06/29/18 [History] Allergies/Adverse Reactions: Allergy/AdvReac Type Severity Reaction Status Date / Time ramipril Allergy Unknown See Verified 05/04/18 13:06 Comments Sulfa (Sulfonamide Allergy Unknown See Verified 05/04/18 13:06 Antibiotics) Comments shellfish derived Allergy Vomiting Verified 03/31/18 15:39 Estrogens AdvReac Mild See Verified 05/04/18 13:06 Comments levothyroxine sodium AdvReac Unknown See Verified 05/04/18 13:06 [From Synthroid] Comments Date of admission: 06/28/18 20:09 Primary care physician: Juliette Rodriguez CNP Consults: 06/29/18 08:22 Consult to Nurse Navigator [CONS] Routine Comment: CHF - Constitutional Vitals: Temp Pulse Resp BP Pulse Ox 97.6 F 69 16 115/62 93 06/30/18 07:42 06/30/18 07:42 06/30/18 07:42 06/30/18 07:42 06/30/18 07:42 General appearance: Present: cooperative, A&O X 3, pleasant, no acute distress, answers questions appropriately Exam: Gen: Alert, awake, Oriented to time,place and person Chest: Diminished breath sounds B/L, No wheezing, No crackles, No rales Heart: S1S2+ RRR No murmurs Abd: Soft, NT, BS +, No organomegaly Ext: No edema, pulses are palpable, No calf tenderness Neuro : Benign findings Skin: No rash. - Patient Status Disposition: Home, Self-Care Condition: Good Overall status at discharge: patient is back to baseline - Discharge Instructions Follow Up With: Juliette Rodriguez CNP [Primary Care Provider] - 07/03/18 10:15 am () - Diet and Activity Activity: increase activity as tolerated Diet: low salt diet
== END 2018-06-30 14:15 | disposition home or self-care (01) ==
LOC: 3BNU 18:05 → EMEROOARM 18:05 → SUATTDRO 20:09 → 3BNU 21:37
PROVIDERS: ADMIT Family Medicine; ATTEND Family Medicine

== ENCOUNTER 2022-01-23 22:01 | Inpatient (IN) ==
[2022-01-23] MEDS ORDERED: Furosemide 40 MG/4 ML VIAL IVP ONE (22:11)
[2022-01-23 22:16] LABS: ABG Base Excess -8 mEq/L (-2 to 3); ABG HCO3 20 mEq/L (21-27); ABG Oxygen Saturation 97 % (95-98); ABG PCO2 46 mmHg (35-45); ABG PH 7.25 pH Units (7.32-7.45); ABG PO2 107 mmHg (85-104); ABG TCO2 21 mEq/L (20-26); Blood Gas Modality BiLevel; Blood Gas VT 393 cc
[2022-01-23 22:27] LABS: Basophils # 0.1 K/mcL (0.0-0.2); Eosinophils # 0.4 K/mcL (0.0-0.6); Eosinophils % 2.5 %; Hematocrit 42.3 % (35.3-44.9); Hemoglobin 12.3 g/dL (11.5-15.4); Immature Granulocytes % 0.4 % (0-4); Lymphocytes # 4.7 K/mcL (0.6-4.6); Mean Corpuscular HGB Conc 29.1 g/dL (31.6-35.5); Mean Corpuscular Hemoglobin 25.3 pg (28.0-33.3); Mean Platelet Volume 10.9 fL (9.4-12.4); Monocytes # 0.9 K/mcL (0.0-1.3); Neutrophils # 8.1 K/mcL (1.6-8.9); Platelet Count 266 K/mcL (140-400); Red Blood Count 4.86 M/mcL (3.82-4.97); Red Cell Distribution Width 16.4 % (11.5-14.5); Segmented Neutrophils % 57.1 %; White Blood Count 14.2 K/mcL (4.3-11.1)
[2022-01-23] MEDS: Nitroglycerin 0.4 MG TAB.SUBL SL SCH ×2 (22:34→22:40)
[2022-01-23 22:39] LABS: INR 1.2; Prothrombin Time 13.6 Seconds (9.4-12.1)
[2022-01-23] MEDS ORDERED: Iopamidol - 370 500 ML MLS IVP ONE (22:47)
[2022-01-23 22:51] LABS: Albumin/Globulin Ratio 1.1 (1.1-2.2); Bilirubin,Total 0.7 mg/dL (0.3-1.0); Calcium 8.2 mg/dL (8.6-10.3); Globulin 3.5 g/dL (2.4-3.5); Magnesium 2.2 mg/dL (1.6-2.6); Potassium 4.6 mEq/L (3.5-5.1); Total Protein 7.5 g/dL (6.4-8.9); Troponin I 0.05 ng/mL (< 0.04)
[2022-01-23 23:33] LABS: Adenovirus Not Detected (Not Detect); Bordetella Pertussis Not Detected (Not Detect); Chlamydophila pneumoniae Not Detected (Not Detect); Coronavirus 229E Not Detected (Not Detect); Coronavirus HKU1 Not Detected (Not Detect); Coronavirus NL63 Not Detected (Not Detect); Coronavirus OC43 Not Detected (Not Detect); Human Metapneumovirus Not Detected (Not Detect); Human Rhinovirus/Enterovirus Not Detected (Not Detect); Influenza A Subtype 2009 H1 Not Detected (Not Detect); Influenza B Not Detected (Not Detect); Mycoplasma pneumoniae Not Detected (Not Detect); Parainfluenza Virus 1 Not Detected (Not Detect); Parainfluenza Virus 2 Not Detected (Not Detect); Parainfluenza Virus 3 Not Detected (Not Detect); Parainfluenza Virus 4 Not Detected (Not Detect); Respiratory Syncytial Virus Not Detected (Not Detect); SARS-CoV-2 Not Detected (Not Detect)
[2022-01-24] MEDS ORDERED: Piperacillin/Tazobactam 3.375 GM in 0.9 % Sodium Chloride Mini Bag 100 ML IVPB ONE (00:34)
[2022-01-24] MEDS ORDERED: Naloxone 0.4 MG/ML INJ IVP PRN (00:42)
[2022-01-24] MEDS ORDERED: Ondansetron 4 MG/2 ML VIAL IVP PRN (00:42)
[2022-01-24] MEDS ORDERED: Melatonin 3 MG TABLET PO PRN (00:42)
[2022-01-24] MEDS ORDERED: Acetaminophen 325 MG TABLET PO PRN (00:42)
[2022-01-24] MEDS ORDERED: Perflutren Lipid Microsphere 1.3 ML in 0.9 % Sodium Chloride 8.7 ML IVP PRN (00:45)
[2022-01-24] MEDS ORDERED: D5% in Water 1,000 ML IVC PRN (01:42)
[2022-01-24] MEDS ORDERED: Dextrose Gel 15 GM/37.5 ML TUBE PO PRN ×2 (01:42)
[2022-01-24] MEDS ORDERED: *HR* Dextrose 50 % in Water (Syg) 50 ML SYRINGE IVP PRN (01:42)
[2022-01-24 03:27] LABS: Hematocrit 39.9 % (35.3-44.9); Hemoglobin 12.2 g/dL (11.5-15.4); Mean Corpuscular HGB Conc 30.6 g/dL (31.6-35.5); Mean Corpuscular Hemoglobin 25.7 pg (28.0-33.3); Mean Corpuscular Volume 84.2 fL (83.0-100.0); Mean Platelet Volume 11.2 fL (9.4-12.4); Platelet Count 229 K/mcL (140-400); Red Blood Count 4.74 M/mcL (3.82-4.97); Red Cell Distribution Width 16.2 % (11.5-14.5)
[2022-01-24 03:52] LABS: BUN/Creatinine Ratio 25 (6-26); Blood Urea Nitrogen 21 mg/dL (8-23); Calcium 8.5 mg/dL (8.6-10.3); Carbon Dioxide 24 mEq/L (23-29); Chloride 104 mEq/L (98-107); Glucose 148 mg/dL (70-105); Magnesium 1.9 mg/dL (1.6-2.6); Osmolality,Calculated 300 (280-300); Phosphorous 3.8 mg/dL (2.7-4.5); Potassium 3.5 mEq/L (3.5-5.1); Sodium 142 mEq/L (136-145); eGFR For African Americans > 60 (> 60); eGFR For Non-African Americans > 60 (> 60)
[2022-01-24 04:01] LABS: Thyroid Stimulating Hormone 3.673 mcIU/mL (0.340-5.600)
[2022-01-24 04:12] LABS: Estimated Average Glucose 117 mg/dl; Hemoglobin A1C 5.7 %
[2022-01-24 07:11] LABS: Troponin I 0.04 ng/mL (< 0.04)
[2022-01-24] MEDS: Apixaban 2.5 MG TABLET PO SCH ×2 (08:02→20:09)
[2022-01-24] MEDS: Lactobacillus 1 EACH CAP.SPRINK PO SCH ×2 (08:02→20:09)
[2022-01-24] MEDS: Chlorhexidine Rinse 15 ML MOUTHWASH MM SCH ×2 (08:03→20:09)
[2022-01-24] MEDS: Aspirin Enteric Coated 81 MG Tablet PO SCH (08:03)
[2022-01-24] MEDS: Spironolactone 25 MG TABLET PO SCH (08:03)
[2022-01-24] MEDS: cefTRIAXone 1,000 MG in 0.9 % Sodium Chloride Mini Bag 100 ML IVPB SCH (08:03)
[2022-01-24] MEDS: carvediloL 6.25 MG TABLET PO SCH ×2 (08:03→17:30)
[2022-01-24] MEDS: Azithromycin 500 MG in 0.9 % Sodium Chloride 250 ML IVPB SCH (08:04)
[2022-01-24] MEDS ORDERED: Furosemide 40 MG/4 ML VIAL IVP SCH ×2 (09:00→21:00)
[2022-01-24 17:25] LABS: Bilirubin,Urine Negative (Negative); Blood,Urine Large (Negative); Clarity,Urine Clear (Clear); Color,Urine Yellow (Yellow); Glucose,Urine (UA) Normal (Normal); Ketones,Urine Negative (Negative); Leukocyte Esterase,Urine Moderate (Negative); Mucus,Urine Few per lpf (None-Few); Nitrite,Urine Negative (Negative); Protein,Urine 70 mg/dL (Neg-Trace); RBC,Urine 50-100 per hpf (0-3); Specific Gravity,Urine > 1.030 (1.010-1.025); Squamous Epithelial Cell,Urine Few per hpf (None-Few); Urobilinogen,Urine Normal (Normal); WBC,Urine 15-30 per hpf (0-3)
[2022-01-24] MEDS: Artificial Tears SOLN 15 ML BOTTLE BOTH EYES SCH (20:09)
[2022-01-25] MEDS: Spironolactone 25 MG TABLET PO SCH (08:04)
[2022-01-25] MEDS: Apixaban 2.5 MG TABLET PO SCH ×2 (08:04→19:32)
[2022-01-25] MEDS: Azithromycin 500 MG in 0.9 % Sodium Chloride 250 ML IVPB SCH (08:04)
[2022-01-25] MEDS: carvediloL 6.25 MG TABLET PO SCH ×2 (08:04→17:17)
[2022-01-25] MEDS: Chlorhexidine Rinse 15 ML MOUTHWASH MM SCH ×2 (08:04→19:32)
[2022-01-25] MEDS: Aspirin Enteric Coated 81 MG Tablet PO SCH (08:04)
[2022-01-25] MEDS: Lactobacillus 1 EACH CAP.SPRINK PO SCH ×2 (08:04→19:32)
[2022-01-25] MEDS: cefTRIAXone 1,000 MG in 0.9 % Sodium Chloride Mini Bag 100 ML IVPB SCH (08:08)
[2022-01-25] MEDS: Furosemide 40 MG/4 ML VIAL IVP SCH ×2 (08:10→12:06)
[2022-01-25] MEDS: Artificial Tears SOLN 15 ML BOTTLE BOTH EYES SCH (19:32)
[2022-01-26 03:25] LABS: BUN/Creatinine Ratio 27 (6-26); Blood Urea Nitrogen 19 mg/dL (8-23); Calcium 8.3 mg/dL (8.6-10.3); Carbon Dioxide 28 mEq/L (23-29); Chloride 106 mEq/L (98-107); Glucose 100 mg/dL (70-105); Magnesium 1.9 mg/dL (1.6-2.6); Osmolality,Calculated 300 (280-300); Phosphorous 3.5 mg/dL (2.7-4.5); Potassium 3.1 mEq/L (3.5-5.1); Sodium 144 mEq/L (136-145); eGFR For African Americans > 60 (> 60); eGFR For Non-African Americans > 60 (> 60)
[2022-01-26 05:25] LABS: Basophils # 0.1 K/mcL (0.0-0.2); Basophils % 0.5 %; Eosinophils # 0.1 K/mcL (0.0-0.6); Eosinophils % 1.3 %; Hematocrit 33.2 % (35.3-44.9); Hemoglobin 10.3 g/dL (11.5-15.4); Immature Granulocytes % 0.2 % (0-4); Lymphocytes # 1.9 K/mcL (0.6-4.6); Lymphocytes % 19.6 %; Mean Corpuscular Hemoglobin 25.6 pg (28.0-33.3); Mean Corpuscular Volume 82.4 fL (83.0-100.0); Mean Platelet Volume 10.8 fL (9.4-12.4); Monocytes # 0.8 K/mcL (0.0-1.3); Monocytes % 8.4 %; Neutrophils # 6.6 K/mcL (1.6-8.9); Platelet Count 213 K/mcL (140-400); Red Blood Count 4.03 M/mcL (3.82-4.97); Red Cell Distribution Width 16.7 % (11.5-14.5); White Blood Count 9.5 K/mcL (4.3-11.1)
[2022-01-26] MEDS: Azithromycin 500 MG in 0.9 % Sodium Chloride 250 ML IVPB SCH (06:24)
[2022-01-26] MEDS: Lactobacillus 1 EACH CAP.SPRINK PO SCH ×2 (08:05→20:47)
[2022-01-26] MEDS: carvediloL 6.25 MG TABLET PO SCH ×2 (08:06→16:35)
[2022-01-26] MEDS: Chlorhexidine Rinse 15 ML MOUTHWASH MM SCH ×2 (08:06→20:46)
[2022-01-26] MEDS: cefTRIAXone 1,000 MG in 0.9 % Sodium Chloride Mini Bag 100 ML IVPB SCH (08:06)
[2022-01-26] MEDS: Aspirin Enteric Coated 81 MG Tablet PO SCH (08:06)
[2022-01-26] MEDS: Apixaban 2.5 MG TABLET PO SCH ×2 (08:06→20:47)
[2022-01-26] MEDS: Spironolactone 25 MG TABLET PO SCH (08:06)
[2022-01-26] MEDS: Furosemide 40 MG/4 ML VIAL IVP SCH (08:06)
[2022-01-26] MEDS ORDERED: *HR* LORazepam 2 MG/ML VIAL IVP ONE (09:26)
[2022-01-26] MEDS: Sacubitril/Valsartan 97/103 MG 1 TAB TABLET PO SCH ×2 (10:50→20:46)
[2022-01-26] MEDS: Artificial Tears SOLN 15 ML BOTTLE BOTH EYES SCH (20:47)
[2022-01-27 06:59] LABS: Basophils # 0.1 K/mcL (0.0-0.2); Basophils % 0.8 %; Eosinophils # 0.3 K/mcL (0.0-0.6); Eosinophils % 3.4 %; Hematocrit 35.6 % (35.3-44.9); Hemoglobin 10.9 g/dL (11.5-15.4); Immature Granulocytes % 0.3 % (0-4); Lymphocytes # 2.1 K/mcL (0.6-4.6); Mean Corpuscular HGB Conc 30.6 g/dL (31.6-35.5); Mean Corpuscular Hemoglobin 25.5 pg (28.0-33.3); Mean Corpuscular Volume 83.2 fL (83.0-100.0); Monocytes # 0.7 K/mcL (0.0-1.3); Monocytes % 9.2 %; Neutrophils # 4.3 K/mcL (1.6-8.9); Platelet Count 223 K/mcL (140-400); Red Blood Count 4.28 M/mcL (3.82-4.97); Segmented Neutrophils % 58.3 %; White Blood Count 7.4 K/mcL (4.3-11.1)
[2022-01-27 07:21] LABS: BUN/Creatinine Ratio 24 (6-26); Blood Urea Nitrogen 17 mg/dL (8-23); Carbon Dioxide 26 mEq/L (23-29); Chloride 110 mEq/L (98-107); Glucose 102 mg/dL (70-105); Osmolality,Calculated 302 (280-300); Phosphorous 3.3 mg/dL (2.7-4.5); Potassium 3.8 mEq/L (3.5-5.1); Sodium 145 mEq/L (136-145); eGFR For African Americans > 60 (> 60); eGFR For Non-African Americans > 60 (> 60)
[2022-01-27] MEDS: cefTRIAXone 1,000 MG in 0.9 % Sodium Chloride Mini Bag 100 ML IVPB SCH (08:45)
[2022-01-27] MEDS: carvediloL 6.25 MG TABLET PO SCH (08:46)
[2022-01-27] MEDS: Aspirin Enteric Coated 81 MG Tablet PO SCH (08:46)
[2022-01-27] MEDS: Sacubitril/Valsartan 97/103 MG 1 TAB TABLET PO SCH (08:46)
[2022-01-27] MEDS: Spironolactone 25 MG TABLET PO SCH (08:46)
[2022-01-27] MEDS: Azithromycin 500 MG in 0.9 % Sodium Chloride 250 ML IVPB SCH (08:46)
[2022-01-27] MEDS: Apixaban 2.5 MG TABLET PO SCH (08:46)
[2022-01-27] MEDS: Lactobacillus 1 EACH CAP.SPRINK PO SCH (08:46)
[2022-01-27] MEDS: Chlorhexidine Rinse 15 ML MOUTHWASH MM SCH (08:47)
[2022-01-27 08:51] VITALS: O2SAT 97
[2022-01-27] MEDS ORDERED: Furosemide 40 MG TABLET PO SCH (09:00)
[2022-01-27 11:46] VITALS: BP 140/91; PULSE 78; TEMP 97.7
== END 2022-01-27 14:00 | disposition home or self-care (01) | DRG 291 ==
LOC: EMEROOARM 22:01 → 3NENU 22:01 → SUATTDRO 01-24 03:28
PROVIDERS: ADMIT Internal Medicine; ATTEND Family Medicine

== ENCOUNTER 2022-03-18 17:19 | Observation (INO) ==
[2022-03-18] MEDS ORDERED: Ipratropium/Albuterol Neb 3 ML IH ONE (19:10)
[2022-03-18] MEDS ORDERED: methylPREDNISolone 125 MG/2 ML VIAL IVP ONE (19:10)
[2022-03-18] MEDS ORDERED: Furosemide 40 MG/4 ML VIAL IVP ONE (19:10)
[2022-03-19] MEDS ORDERED: Ondansetron 4 MG/2 ML VIAL IVP PRN (00:36)
[2022-03-19] MEDS ORDERED: Naloxone 0.4 MG/ML INJ IVP PRN (00:36)
[2022-03-19] MEDS ORDERED: Acetaminophen 325 MG TABLET PO PRN (01:33)
[2022-03-19] MEDS ORDERED: Melatonin 3 MG TABLET PO PRN (01:33)
[2022-03-19] MEDS ORDERED: Iopamidol - 370 500 ML MLS IVP ONE (04:21)
[2022-03-19 05:54] LABS: Basophils % 0.4 %; Eosinophils # 0.1 K/mcL (0.0-0.6); Eosinophils % 0.6 %; Hematocrit 34.5 % (35.3-44.9); Hemoglobin 10.3 g/dL (11.5-15.4); Immature Granulocytes % 0.4 % (0-4); Lymphocytes # 1.8 K/mcL (0.6-4.6); Lymphocytes % 17.6 %; Mean Corpuscular HGB Conc 29.9 g/dL (31.6-35.5); Mean Corpuscular Hemoglobin 24.2 pg (28.0-33.3); Mean Platelet Volume 10.8 fL (9.4-12.4); Monocytes # 0.9 K/mcL (0.0-1.3); Monocytes % 9.3 %; Neutrophils # 7.2 K/mcL (1.6-8.9); Platelet Count 189 K/mcL (140-400); Red Blood Count 4.26 M/mcL (3.82-4.97); Red Cell Distribution Width 16.9 % (11.5-14.5); Segmented Neutrophils % 71.7 %; White Blood Count 10.1 K/mcL (4.3-11.1)
[2022-03-19 06:08] LABS: INR 1.1; Prothrombin Time 12.8 Seconds (9.4-12.1)
[2022-03-19 06:14] LABS: Calcium 8.3 mg/dL (8.6-10.3); Magnesium 1.9 mg/dL (1.6-2.6); Potassium 3.9 mEq/L (3.5-5.1)
[2022-03-19] MEDS: Aspirin Enteric Coated 81 MG Tablet PO SCH (08:13)
[2022-03-19] MEDS: Apixaban 5 MG TABLET PO SCH ×2 (08:13→20:39)
[2022-03-19 08:26] LABS: Adenovirus Not Detected (Not Detect); Bordetella Pertussis Not Detected (Not Detect); Chlamydophila pneumoniae Not Detected (Not Detect); Coronavirus 229E Not Detected (Not Detect); Coronavirus HKU1 Not Detected (Not Detect); Coronavirus NL63 Not Detected (Not Detect); Coronavirus OC43 Not Detected (Not Detect); Human Metapneumovirus Not Detected (Not Detect); Human Rhinovirus/Enterovirus Not Detected (Not Detect); Influenza A Subtype 2009 H1 Not Detected (Not Detect); Influenza B Not Detected (Not Detect); Mycoplasma pneumoniae Not Detected (Not Detect); Parainfluenza Virus 1 Not Detected (Not Detect); Parainfluenza Virus 2 Not Detected (Not Detect); Parainfluenza Virus 3 Not Detected (Not Detect); Parainfluenza Virus 4 Not Detected (Not Detect); Respiratory Syncytial Virus Not Detected (Not Detect); SARS-CoV-2 Not Detected (Not Detect)
[2022-03-19] MEDS: Furosemide 40 MG TABLET PO SCH (13:12)
[2022-03-19] MEDS: Spironolactone 12.5 MG TABLET PO SCH (13:12)
[2022-03-19] MEDS: carvediloL 6.25 MG TABLET PO SCH ×2 (13:14→20:41)
[2022-03-19] MEDS ORDERED: carvediloL 6.25 MG TABLET PO SCH (17:00)
[2022-03-19] MEDS: Sacubitril/Valsartan 97/103 MG 1 TAB TABLET PO SCH (20:40)
[2022-03-20 01:12] LABS: Basophils # 0.1 K/mcL (0.0-0.2); Basophils % 0.7 %; Eosinophils # 0.1 K/mcL (0.0-0.6); Eosinophils % 1.5 %; Hematocrit 33.2 % (35.3-44.9); Hemoglobin 10.5 g/dL (11.5-15.4); Immature Granulocytes % 0.3 % (0-4); Lymphocytes # 1.4 K/mcL (0.6-4.6); Lymphocytes % 19.9 %; Mean Corpuscular HGB Conc 31.6 g/dL (31.6-35.5); Mean Corpuscular Hemoglobin 24.6 pg (28.0-33.3); Mean Corpuscular Volume 77.9 fL (83.0-100.0); Mean Platelet Volume 11.3 fL (9.4-12.4); Monocytes # 0.7 K/mcL (0.0-1.3); Monocytes % 9.4 %; Neutrophils # 4.9 K/mcL (1.6-8.9); Platelet Count 195 K/mcL (140-400); Red Blood Count 4.26 M/mcL (3.82-4.97); Red Cell Distribution Width 17.1 % (11.5-14.5); Segmented Neutrophils % 68.2 %; White Blood Count 7.2 K/mcL (4.3-11.1)
[2022-03-20 01:45] LABS: Calcium 8.4 mg/dL (8.6-10.3); Potassium 3.1 mEq/L (3.5-5.1)
[2022-03-20 01:48] LABS: % Iron Saturation 5 % (15-50); Iron 21 mcg/dL (50-170); Transferrin 289 mg/dL (203-362)
[2022-03-20 01:52] LABS: Ferritin 20 ng/mL (10-120)
[2022-03-20] MEDS: carvediloL 6.25 MG TABLET PO SCH (08:56)
[2022-03-20] MEDS: Furosemide 40 MG TABLET PO SCH (08:56)
[2022-03-20] MEDS: Spironolactone 12.5 MG TABLET PO SCH (08:56)
[2022-03-20] MEDS: Aspirin Enteric Coated 81 MG Tablet PO SCH (08:56)
[2022-03-20] MEDS: Sacubitril/Valsartan 97/103 MG 1 TAB TABLET PO SCH (08:57)
[2022-03-20] MEDS: Apixaban 5 MG TABLET PO SCH (08:57)
[2022-03-20 10:23] LABS: ABG Base Excess -3 mEq/L (-2 to 3); ABG HCO3 21 mEq/L (21-27); ABG Oxygen Saturation 99 % (95-98); ABG PCO2 33 mmHg (35-45); ABG PH 7.42 pH Units (7.32-7.45); ABG PO2 140 mmHg (85-104); ABG TCO2 23 mEq/L (20-26)
[2022-03-20 11:21] VITALS: BP 131/60; PULSE 81; TEMP 98.5; O2SAT 97
[2022-03-20 23:04] LABS: Basophils % 0.3 %; Eosinophils % 0.1 %; Hematocrit 36.9 % (35.3-44.9); Immature Granulocytes % 0.4 % (0-4); Lymphocytes # 0.8 K/mcL (0.6-4.6); Lymphocytes % 6.2 %; Mean Corpuscular HGB Conc 29.8 g/dL (31.6-35.5); Mean Corpuscular Hemoglobin 24.1 pg (28.0-33.3); Mean Corpuscular Volume 80.7 fL (83.0-100.0); Mean Platelet Volume 10.8 fL (9.4-12.4); Monocytes # 0.8 K/mcL (0.0-1.3); Monocytes % 5.9 %; Neutrophils # 11.6 K/mcL (1.6-8.9); Platelet Count 213 K/mcL (140-400); Red Blood Count 4.57 M/mcL (3.82-4.97); Red Cell Distribution Width 16.9 % (11.5-14.5); Segmented Neutrophils % 87.1 %; White Blood Count 13.3 K/mcL (4.3-11.1)
[2022-03-20 23:06] LABS: Calcium 7.9 mg/dL (8.6-10.3); Potassium 4.1 mEq/L (3.5-5.1)
[2022-03-20 23:07] LABS: Albumin 3.9 g/dL (3.5-5.7); Albumin/Globulin Ratio 1.3 (1.1-2.2); Bilirubin,Direct 0.2 mg/dL (0.0-0.2); Bilirubin,Indirect 0.5 mg/dL (0.0-1.0); Bilirubin,Total 0.7 mg/dL (0.3-1.0); Globulin 3.1 g/dL (2.4-3.5); Troponin I 0.03 ng/mL (< 0.04)
[2022-03-20 23:10] LABS: INR 1.2; Prothrombin Time 13.1 Seconds (9.4-12.1)
[2022-03-20 23:41] LABS: Bilirubin,Urine Negative (Negative); Blood,Urine Small (Negative); Clarity,Urine Clear (Clear); Color,Urine Colorless (Yellow); Glucose,Urine (UA) Normal (Normal); Ketones,Urine Negative (Negative); Protein,Urine Trace mg/dL (Neg-Trace); Specific Gravity,Urine 1.007 (1.010-1.025)
[2022-03-20 23:42] LABS: Bacteria,Urine Few per hpf (None-Few); Hyaline Casts,Urine Few per lpf (None Seen); Leukocyte Esterase,Urine Negative (Negative); Mucus,Urine Few per lpf (None-Few); Nitrite,Urine Negative (Negative); RBC,Urine 30-50 per hpf (0-3); Squamous Epithelial Cell,Urine Few per hpf (None-Few); Urobilinogen,Urine Normal (Normal); WBC,Urine 0-3 per hpf (0-3)
== END 2022-03-20 17:13 | disposition home health service (06) ==
LOC: EMEROOARM 17:19 → 3NENU 17:19 → SUATTDRO 03-19 00:54 → 3NENU 03-19 00:58
PROVIDERS: ADMIT Internal Medicine; ATTEND Pharmacist

== ENCOUNTER 2022-03-22 00:53 | Inpatient (IN) ==
[2022-03-22 02:37] LABS: Basophils # 0.1 K/mcL (0.0-0.2); Basophils % 0.3 %; Eosinophils # 0.2 K/mcL (0.0-0.6); Eosinophils % 0.9 %; Hematocrit 38.1 % (35.3-44.9); Hemoglobin 11.4 g/dL (11.5-15.4); Immature Granulocytes % 0.6 % (0-4); Lymphocytes # 0.8 K/mcL (0.6-4.6); Lymphocytes % 4.9 %; Mean Corpuscular HGB Conc 29.9 g/dL (31.6-35.5); Mean Corpuscular Hemoglobin 24.9 pg (28.0-33.3); Mean Corpuscular Volume 83.4 fL (83.0-100.0); Mean Platelet Volume 12.1 fL (9.4-12.4); Monocytes # 0.5 K/mcL (0.0-1.3); Monocytes % 3.1 %; Neutrophils # 15.2 K/mcL (1.6-8.9); Platelet Count 228 K/mcL (140-400); Red Blood Count 4.57 M/mcL (3.82-4.97); Red Cell Distribution Width 17.7 % (11.5-14.5); Segmented Neutrophils % 90.2 %
[2022-03-22 02:42] LABS: White Blood Count 16.9 K/mcL (4.3-11.1)
[2022-03-22 03:07] LABS: Albumin/Globulin Ratio 1.2 (1.1-2.2); Bilirubin,Direct 0.2 mg/dL (0.0-0.2); Bilirubin,Indirect 0.4 mg/dL (0.0-1.0); Bilirubin,Total 0.6 mg/dL (0.3-1.0); Calcium 7.8 mg/dL (8.6-10.3); Globulin 3.3 g/dL (2.4-3.5); Potassium 5.1 mEq/L (3.5-5.1); Total Protein 7.3 g/dL (6.4-8.9)
[2022-03-22 03:44] LABS: Troponin I 0.06 ng/mL (< 0.04)
[2022-03-22] MEDS ORDERED: Piperacillin/Tazobactam 3.375 GM in 0.9 % Sodium Chloride Mini Bag 100 ML IVPB ONE (04:08)
[2022-03-22] MEDS ORDERED: 0.9 % Sodium Chloride 500 ML ONE ×2 (04:16→06:43)
[2022-03-22] MEDS ORDERED: Prochlorperazine 10 MG/2 ML VIAL IVP PRN (05:44)
[2022-03-22 05:55] LABS: Bilirubin,Urine Negative (Negative); Blood,Urine Negative (Negative); Clarity,Urine Clear (Clear); Color,Urine Light-Yellow (Yellow); Glucose,Urine (UA) 300 mg/dL (Normal); Hyaline Casts,Urine Few per lpf (None Seen); Ketones,Urine Negative (Negative); Leukocyte Esterase,Urine Negative (Negative); Mucus,Urine Few per lpf (None-Few); Nitrite,Urine Negative (Negative); Protein,Urine Negative (Neg-Trace); Urobilinogen,Urine Normal (Normal); WBC,Urine 0-3 per hpf (0-3)
[2022-03-22] MEDS ORDERED: 0.9 % Sodium Chloride 500 ML IVC ONE ×2 (06:46→10:58)
[2022-03-22] MEDS ORDERED: Ondansetron 4 MG/2 ML VIAL IVP PRN (07:40)
[2022-03-22] MEDS ORDERED: Naloxone 0.4 MG/ML INJ IVP PRN (07:40)
[2022-03-22 09:10] LABS: INR 1.3
[2022-03-22 09:35] LABS: Magnesium 1.6 mg/dL (1.6-2.6); Phosphorous 4.8 mg/dL (2.7-4.5)
[2022-03-22 09:57] LABS: Thyroid Stimulating Hormone 1.533 mcIU/mL (0.340-5.600)
[2022-03-22] MEDS: Apixaban 5 MG TABLET PO SCH ×2 (10:22→20:57)
[2022-03-22] MEDS: Cefepime HCl 2,000 MG in 0.9 % Sodium Chloride 10 ML IVP SCH ×2 (10:22→20:57)
[2022-03-22] MEDS: Albumin Human 5% 12.5 GM/250 ML IV.SOLN IVC SCH ×2 (11:39→15:34)
[2022-03-22] MEDS ORDERED: Ampicillin 2,000 MG in 0.9 % Sodium Chloride Mini Bag 100 ML IVPB SCH (12:00)
[2022-03-22 12:50] LABS: Adenovirus Not Detected (Not Detect); Coronavirus 229E Not Detected (Not Detect); Coronavirus HKU1 Not Detected (Not Detect); Coronavirus NL63 Not Detected (Not Detect); Coronavirus OC43 Not Detected (Not Detect); Human Rhinovirus/Enterovirus Not Detected (Not Detect); Influenza A Subtype 2009 H1 Not Detected (Not Detect); SARS-CoV-2 Not Detected (Not Detect)
[2022-03-22 12:51] LABS: Bordetella Pertussis Not Detected (Not Detect); Chlamydophila pneumoniae Not Detected (Not Detect); Human Metapneumovirus Not Detected (Not Detect); Influenza B Not Detected (Not Detect); Mycoplasma pneumoniae Not Detected (Not Detect); Parainfluenza Virus 1 Not Detected (Not Detect); Parainfluenza Virus 2 Not Detected (Not Detect); Parainfluenza Virus 3 Not Detected (Not Detect); Parainfluenza Virus 4 Not Detected (Not Detect); Respiratory Syncytial Virus Not Detected (Not Detect)
[2022-03-22] MEDS: Hydrocortisone Sodium Succ 100 MG/2 ML VIAL IVP SCH ×2 (13:24→20:57)
[2022-03-22] MEDS: Ampicillin 2,000 MG in 0.9 % Sodium Chloride Mini Bag 100 ML IVPB SCH ×2 (13:50→21:04)
[2022-03-23] MEDS ORDERED: *HR* LORazepam 2 MG/ML VIAL IVP ONE (00:33)
[2022-03-23] MEDS: Ampicillin 2,000 MG in 0.9 % Sodium Chloride Mini Bag 100 ML IVPB SCH ×3 (05:36→20:43)
[2022-03-23 06:42] LABS: Basophils % 0.1 %; Hematocrit 26.5 % (35.3-44.9); Immature Granulocytes % 0.6 % (0-4); Lymphocytes # 0.6 K/mcL (0.6-4.6); Lymphocytes % 4.3 %; Mean Corpuscular HGB Conc 30.2 g/dL (31.6-35.5); Mean Corpuscular Hemoglobin 24.3 pg (28.0-33.3); Mean Corpuscular Volume 80.5 fL (83.0-100.0); Mean Platelet Volume 11.6 fL (9.4-12.4); Monocytes # 0.3 K/mcL (0.0-1.3); Monocytes % 2.2 %; Neutrophils # 12.7 K/mcL (1.6-8.9); Platelet Count 179 K/mcL (140-400); Red Blood Count 3.29 M/mcL (3.82-4.97); Red Cell Distribution Width 17.2 % (11.5-14.5); Segmented Neutrophils % 92.8 %; White Blood Count 13.6 K/mcL (4.3-11.1)
[2022-03-23 06:59] LABS: Potassium 3.1 mEq/L (3.5-5.1)
[2022-03-23 07:00] LABS: Calcium 7.2 mg/dL (8.6-10.3)
[2022-03-23] MEDS: Apixaban 5 MG TABLET PO SCH (08:35)
[2022-03-23] MEDS: Cefepime HCl 2,000 MG in 0.9 % Sodium Chloride 10 ML IVP SCH ×2 (08:36→20:42)
[2022-03-23 13:25] LABS: Hematocrit 28.5 % (35.3-44.9); Hemoglobin 8.7 g/dL (11.5-15.4)
[2022-03-23] MEDS ORDERED: *HR* Heparin 5,000 UNIT/ML VIAL IVP ONE (18:38)
[2022-03-23] MEDS ORDERED: *HR* Heparin 5,000 UNIT/ML VIAL IVP PRN ×2 (18:38)
[2022-03-23] MEDS ORDERED: Heparin 25,000UNIT/250ML 1/2NS 25,000 UNIT/250 ML IV.SOLN IVC SCH ×2 (18:45)
[2022-03-23 19:14] LABS: Hematocrit 26.2 % (35.3-44.9); Hemoglobin 8.2 g/dL (11.5-15.4); Mean Corpuscular HGB Conc 31.3 g/dL (31.6-35.5); Mean Corpuscular Hemoglobin 24.6 pg (28.0-33.3); Mean Corpuscular Volume 78.4 fL (83.0-100.0); Mean Platelet Volume 11.2 fL (9.4-12.4); Platelet Count 192 K/mcL (140-400); Red Blood Count 3.34 M/mcL (3.82-4.97); Red Cell Distribution Width 17.2 % (11.5-14.5); White Blood Count 13.4 K/mcL (4.3-11.1)
[2022-03-23 19:30] LABS: Heparin anti-factor XA UFH 1.33 IU/mL (0.30-0.70); INR 1.4; Prothrombin Time 15.7 Seconds (9.4-12.1)
[2022-03-23 19:53] LABS: Activated Partial Thrombo Time 32.6 Seconds (26.0-36.0)
[2022-03-23] MEDS: Pregabalin 75 MG CAPSULE PO SCH (20:31)
[2022-03-23] MEDS ORDERED: Melatonin 3 MG TABLET PO SCH (21:00)
[2022-03-23] MEDS ORDERED: Calcium Gluconate 1gm/50mL 1 GM/50 ML BAG IVPB ONE (22:56)
[2022-03-23] MEDS ORDERED: Potassium Chloride Elixir 20 MEQ/15 ML UDC PO ONE (22:56)
[2022-03-23 23:46] LABS: Calcium 7.2 mg/dL (8.6-10.3)
[2022-03-23] MEDS ORDERED: Furosemide 40 MG/4 ML VIAL IVP ONE (23:51)
[2022-03-23] MEDS ORDERED: Furosemide 40 MG/4 ML VIAL ONE (23:54)
[2022-03-24 00:05] LABS: ABG Base Excess -10 mEq/L (-2 to 3); ABG HCO3 18 mEq/L (21-27); ABG Oxygen Saturation 78 % (95-98); ABG PCO2 47 mmHg (35-45); ABG PH 7.19 pH Units (7.32-7.45); ABG PO2 52 mmHg (85-104); ABG TCO2 20 mEq/L (20-26)
[2022-03-24] MEDS ORDERED: *HR* LORazepam 2 MG/ML VIAL IVP ONE ×2 (00:11→00:23)
[2022-03-24] MEDS ORDERED: *HR* LORazepam 2 MG/ML VIAL ONE (00:13)
[2022-03-24 00:44] LABS: Basophils % 0.6 %; Eosinophils # 0.3 K/mcL (0.0-0.6); Eosinophils % 1.2 %; Hematocrit 35.7 % (35.3-44.9); Immature Granulocytes % 0.6 % (0-4); Lymphocytes # 5.3 K/mcL (0.6-4.6); Lymphocytes % 21.8 %; Mean Corpuscular HGB Conc 29.7 g/dL (31.6-35.5); Mean Corpuscular Hemoglobin 24.5 pg (28.0-33.3); Mean Corpuscular Volume 82.4 fL (83.0-100.0); Mean Platelet Volume 11.4 fL (9.4-12.4); Monocytes # 1.7 K/mcL (0.0-1.3); Monocytes % 6.9 %; Neutrophils # 16.7 K/mcL (1.6-8.9); Platelet Count 273 K/mcL (140-400); Red Blood Count 4.33 M/mcL (3.82-4.97); Red Cell Distribution Width 17.6 % (11.5-14.5); Segmented Neutrophils % 68.9 %
[2022-03-24 01:00] LABS: Basophils # 0.2 K/mcL (0.0-0.2); Hemoglobin 10.6 g/dL (11.5-15.4); White Blood Count 24.2 K/mcL (4.3-11.1)
[2022-03-24 01:04] LABS: Calcium 7.3 mg/dL (8.6-10.3); Potassium 3.4 mEq/L (3.5-5.1)
[2022-03-24 01:07] LABS: Troponin I 2.61 ng/mL (< 0.04)
[2022-03-24 01:31] LABS: Magnesium 1.7 mg/dL (1.6-2.6)
[2022-03-24] MEDS: Hydrocortisone Sodium Succ 100 MG/2 ML VIAL IVP SCH (03:41)
[2022-03-24] MEDS: Ampicillin 2,000 MG in 0.9 % Sodium Chloride Mini Bag 100 ML IVPB SCH (06:02)
[2022-03-24 08:45] LABS: ABG Base Excess -3 mEq/L (-2 to 3); ABG HCO3 21 mEq/L (21-27); ABG Oxygen Saturation 97 % (95-98); ABG PCO2 30 mmHg (35-45); ABG PH 7.45 pH Units (7.32-7.45); ABG PO2 81 mmHg (85-104); ABG TCO2 21 mEq/L (20-26)
[2022-03-24] MEDS ORDERED: Furosemide 20 MG/2 ML VIAL IVP ONE (08:46)
[2022-03-24] MEDS ORDERED: Spironolactone 12.5 MG TABLET PO SCH (09:00)
[2022-03-24] MEDS ORDERED: Aspirin Enteric Coated 81 MG Tablet PO SCH (09:00)
[2022-03-24] MEDS ORDERED: Lidocaine -MPF 1% 5 ML AMPUL INFILT ONE (09:12)
[2022-03-24] MEDS: Cefepime HCl 2,000 MG in 0.9 % Sodium Chloride 10 ML IVP SCH ×2 (09:19→20:32)
[2022-03-24] MEDS: Pregabalin 75 MG CAPSULE PO SCH ×2 (09:20→20:31)
[2022-03-24 10:03] LABS: Calcium 7.3 mg/dL (8.6-10.3); Magnesium 1.6 mg/dL (1.6-2.6); Phosphorous 3.5 mg/dL (2.7-4.5); Potassium 3.3 mEq/L (3.5-5.1)
[2022-03-24 10:06] LABS: Troponin I 2.48 ng/mL (< 0.04)
[2022-03-24] MEDS ORDERED: Potassium Phosphate 44 MEQ in 0.9 % Sodium Chloride 250 ML IVPB PRN ×2 (10:16→19:04)
[2022-03-24] MEDS ORDERED: *HR* Dextrose 50 % in Water (Syg) 50 ML SYRINGE IVP PRN ×2 (10:19→19:04)
[2022-03-24] MEDS ORDERED: D5% in Water 1,000 ML IVC PRN ×2 (10:19→19:04)
[2022-03-24] MEDS ORDERED: Dextrose Gel 15 GM/37.5 ML TUBE PO PRN ×4 (10:19→19:04)
[2022-03-24] MEDS ORDERED: Insulin LISPRO 300 UNITS/3 ML VIAL SUBQ SCH (10:30)
[2022-03-24 11:01] LABS: Estimated Average Glucose 123 mg/dl; Hemoglobin A1C 5.9 %
[2022-03-24] MEDS: Insulin LISPRO 300 UNITS/3 ML VIAL SUBQ SCH ×3 (11:06→20:37)
[2022-03-24 11:23] LABS: VBG Ionized Calcium 0.95 mmol/L (1.15-1.35)
[2022-03-24] MEDS ORDERED: Morphine Sulfate 2 MG/ML SYRINGE IVP PRN ×2 (12:06→19:04)
[2022-03-24] MEDS ORDERED: *HR* LORazepam 2 MG/ML VIAL IVP PRN ×2 (12:07→19:04)
[2022-03-24] MEDS ORDERED: Metoprolol XL (24 HR) Succ 25 MG TAB.ER.24H PO SCH (12:15)
[2022-03-24 15:25] LABS: Hematocrit 29.7 % (35.3-44.9); Hemoglobin 9.2 g/dL (11.5-15.4)
[2022-03-24] MEDS ORDERED: Naloxone 0.4 MG/ML INJ IVP PRN (19:04)
[2022-03-24] MEDS ORDERED: Ondansetron 4 MG/2 ML VIAL IVP PRN (19:04)
[2022-03-24] MEDS ORDERED: Prochlorperazine 10 MG/2 ML VIAL IVP PRN (19:04)
[2022-03-24] MEDS ORDERED: *HR* Heparin 5,000 UNIT/ML VIAL IVP PRN ×2 (19:04)
[2022-03-24] MEDS: Melatonin 3 MG TABLET PO SCH (20:31)
[2022-03-25] MEDS: Heparin 25,000UNIT/250ML 1/2NS 25,000 UNIT/250 ML IV.SOLN IVC SCH ×2 (00:23→22:00)
[2022-03-25] MEDS: Pregabalin 75 MG CAPSULE PO SCH ×3 (00:36→21:58)
[2022-03-25] MEDS: Melatonin 3 MG TABLET PO SCH ×2 (00:36→21:58)
[2022-03-25] MEDS: Insulin LISPRO 300 UNITS/3 ML VIAL SUBQ SCH ×4 (05:55→21:57)
[2022-03-25] MEDS: Aspirin Enteric Coated 81 MG Tablet PO SCH (08:56)
[2022-03-25] MEDS: Metoprolol XL (24 HR) Succ 25 MG TAB.ER.24H PO SCH (08:56)
[2022-03-25] MEDS: Cefepime HCl 2,000 MG in 0.9 % Sodium Chloride 10 ML IVP SCH ×2 (08:56→22:00)
[2022-03-25] MEDS ORDERED: Morphine Sulfate Oral CONC 10 MG/0.5 ML ORAL.SYG SL PRN (16:58)
[2022-03-25] MEDS ORDERED: *HR* LORazepam 2 MG/ML VIAL IVP PRN (17:05)
[2022-03-25] MEDS ORDERED: Acetaminophen 325 MG TABLET PO PRN (17:08)
[2022-03-26] MEDS: Metoprolol XL (24 HR) Succ 25 MG TAB.ER.24H PO SCH (09:24)
[2022-03-26] MEDS: Cefepime HCl 2,000 MG in 0.9 % Sodium Chloride 10 ML IVP SCH ×2 (09:24→21:39)
[2022-03-26] MEDS: Pregabalin 75 MG CAPSULE PO SCH ×2 (09:25→21:39)
[2022-03-26] MEDS: Insulin LISPRO 300 UNITS/3 ML VIAL SUBQ SCH ×4 (09:25→21:39)
[2022-03-26] MEDS: Aspirin Enteric Coated 81 MG Tablet PO SCH (09:25)
[2022-03-26] MEDS: Melatonin 3 MG TABLET PO SCH (21:39)
[2022-03-27] MEDS: Heparin 25,000UNIT/250ML 1/2NS 25,000 UNIT/250 ML IV.SOLN IVC SCH (02:43)
[2022-03-27] MEDS: Aspirin Enteric Coated 81 MG Tablet PO SCH (09:38)
[2022-03-27] MEDS: Insulin LISPRO 300 UNITS/3 ML VIAL SUBQ SCH ×3 (09:38→19:33)
[2022-03-27] MEDS: Pregabalin 75 MG CAPSULE PO SCH ×2 (09:39→21:41)
[2022-03-27] MEDS: Metoprolol XL (24 HR) Succ 25 MG TAB.ER.24H PO SCH (09:39)
[2022-03-27] MEDS: Cefepime HCl 2,000 MG in 0.9 % Sodium Chloride 10 ML IVP SCH ×2 (09:39→21:41)
[2022-03-27] MEDS: Melatonin 3 MG TABLET PO SCH (21:41)
[2022-03-28] MEDS: *HR* LORazepam Oral Conc 2 MG/ML SL PRN ×2 (00:12→06:29)
[2022-03-28] MEDS: Insulin LISPRO 300 UNITS/3 ML VIAL SUBQ SCH ×5 (06:28→21:14)
[2022-03-28] MEDS: Aspirin Enteric Coated 81 MG Tablet PO SCH (08:36)
[2022-03-28] MEDS: Metoprolol XL (24 HR) Succ 25 MG TAB.ER.24H PO SCH (08:37)
[2022-03-28] MEDS: Pregabalin 75 MG CAPSULE PO SCH ×2 (08:37→21:28)
[2022-03-28] MEDS: Cefepime HCl 2,000 MG in 0.9 % Sodium Chloride 10 ML IVP SCH ×2 (12:15→21:28)
[2022-03-28] MEDS: Melatonin 3 MG TABLET PO SCH (21:28)
[2022-03-29 08:00] VITALS: O2SAT 96
[2022-03-29] MEDS: Insulin LISPRO 300 UNITS/3 ML VIAL SUBQ SCH ×2 (09:10→12:14)
[2022-03-29] MEDS: Metoprolol XL (24 HR) Succ 25 MG TAB.ER.24H PO SCH (09:11)
[2022-03-29] MEDS: Aspirin Enteric Coated 81 MG Tablet PO SCH (09:11)
[2022-03-29] MEDS: Cefepime HCl 2,000 MG in 0.9 % Sodium Chloride 10 ML IVP SCH (09:12)
[2022-03-29] MEDS: Pregabalin 75 MG CAPSULE PO SCH (09:12)
[2022-03-29 11:25] VITALS: BP 133/79; PULSE 90; TEMP 98.1
== END 2022-03-29 14:55 | disposition home health service (06) | DRG 871 ==
LOC: 3ANU 00:53 → EMEROOARM 00:53 → SUATTDRO 14:56 → 3ANU 16:15 → ICNU 03-24 03:18 → SUATTDRO 03-24 15:55 → 2ANU 03-25 21:23
PROVIDERS: ADMIT Student in an Organized Health Care Education/Training Program; ATTEND Internal Medicine